=== PATIENT | male | born 1990 | race Caucasian/White ===

== ENCOUNTER 2019-03-01 14:07 | Emergency (ER) | payer OTHER ==
[2019-03-01] MEDS ORDERED: Sodium Chloride 0.9% 1000 ML 1,000 ML IV STA (14:45)
[2019-03-01] MEDS ORDERED: PROTONIX 40 MG IV IV ONE ×2 (14:47→14:54)
[2019-03-01] MEDS ORDERED: TORAdol 30 mg Injection IV ONE (14:47)
--- NOTE | 2019-03-01 14:50 | ERPHSYRPT ---
- History of Present Illness Time Seen by Provider: 03/01/19 14:48 Historian: patient Patient Subjective Stated Complaint: started feeling heart beating hard and skipping a bnneat this morning while at work. no CP has had 5 cups of coffee which is more than he usually drinks. Triage Nursing Assessment: alert and anxious states his heart has been beating hard and skipping beats since this morning. denies CP. cecily feels funny since this AM. has drank 5 cups of coffee which is more than usuall. Physician History: mild to mod off and on palpitations today since 10am, no chest pain, no shortness of breath, no fever, no VA, no family hx cad Aspirin Treatment Today: 325 mg x 1 Allergies/Adverse Reactions: No Known Drug Allergies Allergy (Unverified 03/01/19 14:47) Immunizations Up to Date: (unknown) - Review of Systems Constitutional: No Fever Eyes: No Eye Redness Ears, Nose, & Throat: No Mouth Pain Respiratory: No Dyspnea Cardiac: Palpitations, No Chest Pain, No Syncope Abdominal/Gastrointestinal: No Abdominal Pain Genitourinary Symptoms: No Dysuria Musculoskeletal: No Back Pain Skin: No Rash Neurological: No Dizziness, No Focal Weakness, No Headache - Past Medical History Pertinent Past Medical History: No - Past Surgical History Past Surgical History: No - Social History Smoking Status: Current every day smoker Exposure to second hand smoke: No Drug Use: marijuana Patient Lives Alone: No - Nursing Vital Signs Nursing Vital Signs: Initial Vital Signs Temperature 98 F 03/01/19 14:31 Pulse Rate 95 H 03/01/19 14:31 Respiratory Rate 18 03/01/19 14:31 Blood Pressure 125/82 03/01/19 14:31 O2 Sat by Pulse Oximetry 96 03/01/19 14:31 Pain Scale Pain Intensity 0 - Physical Exam General Appearance: no apparent distress Eye Exam: eyes nml inspection Ears, Nose, Throat Exam: moist mucous membranes Neck Exam: normal inspection Respiratory Exam: normal breath sounds, lungs clear, No respiratory distress Cardiovascular Exam: regular rate/rhythm Gastrointestinal/Abdomen Exam: soft, No tenderness Back Exam: normal range of motion Extremity Exam: normal inspection Neurologic Exam: alert, oriented x 3, cooperative Skin Exam: normal color, warm, dry SpO2 Interpretation: normal SpO2: 96 - Course Nursing assessment & vital signs reviewed: Yes EKG Interpreted by Me: Sinus Rhythm, Other (no stemi) - Radiology Exams Chest X-ray Interpretation: Discussed w/ radiologist, Negative Ordered Tests: Active Orders 24 hr Category Date Time Status Court Operations Clerk STAT Care 03/01/19 14:45 Active EKG-ER Only STAT Care 03/01/19 14:45 Active IV Insertion STAT Care 03/01/19 14:45 Active CHEST 1 VIEW (PORTABLE) Stat Exams 03/01/19 14:45 Completed CBC W DIFF Stat Lab 03/01/19 15:00 Completed CK-Creatinine Phosphokinase Stat Lab 03/01/19 15:05 Completed CMP Stat Lab 03/01/19 15:05 Completed D-DIMER QUANTITATION Stat Lab 03/01/19 15:05 Completed TROPONIN Q3H Lab 03/01/19 15:05 Completed TROPONIN Q3H Lab 03/01/19 17:45 Ordered TROPONIN Q3H Lab 03/01/19 20:45 Ordered TROPONIN Q3H Lab 03/01/19 23:45 Ordered TROPONIN Q3H Lab 03/02/19 02:45 Ordered Urine Triage Profile Stat Lab 03/01/19 15:06 Completed Medication Summary Discontinued Medications Generic Name Dose Route Start Last Admin Trade Name Freq PRN Reason Stop Dose Admin Sodium Chloride 1,000 mls @ 999 mls/hr 03/01/19 14:45 03/01/19 14:56 Sodium Chloride 0.9% 1000 Ml IV 03/01/19 15:45 999 mls/hr .Q1H1M STA Administration Sodium Chloride Confirm 03/01/19 14:54 Sodium Chloride 0.9% 1000 Ml Administered 03/01/19 14:55 Dose 1,000 mls @ ud .ROUTE .STK-MED ONE Ketorolac Tromethamine 30 mg 03/01/19 14:47 03/01/19 14:56 Toradol 30 Mg Injection IV 03/01/19 14:48 Not Given STAT ONE Ketorolac Tromethamine Confirm 03/01/19 14:54 Toradol 30 Mg Injection Administered 03/01/19 14:55 Dose 30 mg .ROUTE .STK-MED ONE Pantoprazole Sodium 40 mg 03/01/19 14:47 03/01/19 14:55 Protonix 40 Mg Iv IV 03/01/19 14:48 40 mg STAT ONE Administration Pantoprazole Sodium Confirm 03/01/19 14:54 Protonix 40 Mg Iv Administered 03/01/19 14:55 Dose 40 mg IV .STK-MED ONE Lab/Rad Data: Laboratory Result Diagrams 03/01/19 15:00 03/01/19 15:05 Laboratory Results 03/01/19 03/01/19 03/01/19 Range/Units 15:06 15:05 15:05 WBC (4.0-10.5) K/mm3 RBC (4.1-5.6) M/mm3 Hgb (12.5-18.0) gm/dl Hct (42-50) % MCV (78-100) fl MCH (26-32) pg MCHC (32-36) g/dl RDW (11.5-14.0) % Plt Count (150-450) K/mm3 MPV (6-9.5) fl Gran % (36.0-66.0) % Eos # (Auto) (0-0.5) Absolute Lymphs (auto) (1.0-4.6) Absolute Monos (auto) (0.0-1.3) Lymphocytes % (24.0-44.0) % Monocytes % (0.0-12.0) % Eosinophils % (0.00-5.0) % Basophils % (0.0-0.4) % Absolute Granulocytes (1.4-6.9) Basophils # (0-0.4) D-Dimer 251 (215-500) ng/mL Sodium 142 (137-145) mmol/L Potassium 4.0 (3.5-5.1) mmol/L Chloride 104 (98-107) mmol/L Carbon Dioxide 30 (22-30) mmol/L Anion Gap 12.6 (5-15) MEQ/L BUN 12 (9-20) mg/dL Creatinine 0.89 (0.66-1.25) mg/dL Estimated GFR > 60.0 ML/MIN Glucose 106 (74-106) mg/dL Calcium 9.6 (8.4-10.2) mg/dL Total Bilirubin 0.30 (0.2-1.3) mg/dL AST 23 (17-59) U/L ALT 14 (0-50) U/L Alkaline Phosphatase 39 (38-126) U/L Creatine Kinase 101 (55-170) U/L Troponin I (0.000-0.034) ng/mL Serum Total Protein 7.4 (6.3-8.2) g/dL Albumin 4.3 (3.5-5.0) g/dL Urine Opiates Level NEGATIVE (NEGATIVE) Ur Methadone NEGATIVE (NEGATIVE) Urine Barbiturates NEGATIVE (NEGATIVE) Ur Phencyclidine (PCP) NEGATIVE (NEGATIVE) Urine Amphetamine NEGATIVE (NEGATIVE) U Benzodiazepine Level NEGATIVE (NEGATIVE) Urine Cocaine NEGATIVE (NEGATIVE) Urine Marijuana (THC) POSITIVE (NEGATIVE) Slides for Path Review 03/01/19 03/01/19 Range/Units 15:05 15:00 WBC 8.0 (4.0-10.5) K/mm3 RBC 4.16 (4.1-5.6) M/mm3 Hgb 13.1 (12.5-18.0) gm/dl Hct 38.6 L (42-50) % MCV 92.8 (78-100) fl MCH 31.5 (26-32) pg MCHC 33.9 (32-36) g/dl RDW 12.5 (11.5-14.0) % Plt Count 175 (150-450) K/mm3 MPV 11.2 H (6-9.5) fl Gran % 67.7 H (36.0-66.0) % Eos # (Auto) 0.10 (0-0.5) Absolute Lymphs (auto) 1.77 (1.0-4.6) Absolute Monos (auto) 0.70 (0.0-1.3) Lymphocytes % 22.2 L (24.0-44.0) % Monocytes % 8.8 (0.0-12.0) % Eosinophils % 1.3 (0.00-5.0) % Basophils % 0.0 (0.0-0.4) % Absolute Granulocytes 5.42 (1.4-6.9) Basophils # 0 (0-0.4) D-Dimer (215-500) ng/mL Sodium (137-145) mmol/L Potassium (3.5-5.1) mmol/L Chloride (98-107) mmol/L Carbon Dioxide (22-30) mmol/L Anion Gap (5-15) MEQ/L BUN (9-20) mg/dL Creatinine (0.66-1.25) mg/dL Estimated GFR ML/MIN Glucose (74-106) mg/dL Calcium (8.4-10.2) mg/dL Total Bilirubin (0.2-1.3) mg/dL AST (17-59) U/L ALT (0-50) U/L Alkaline Phosphatase (38-126) U/L Creatine Kinase (55-170) U/L Troponin I < 0.012 (0.000-0.034) ng/mL Serum Total Protein (6.3-8.2) g/dL Albumin (3.5-5.0) g/dL Urine Opiates Level (NEGATIVE) Ur Methadone (NEGATIVE) Urine Barbiturates (NEGATIVE) Ur Phencyclidine (PCP) (NEGATIVE) Urine Amphetamine (NEGATIVE) U Benzodiazepine Level (NEGATIVE) Urine Cocaine (NEGATIVE) Urine Marijuana (THC) (NEGATIVE) Slides for Path Review YES - Progress Progress: improved Air Movement: good Progress Note: 03/01/19 17:12 differential dw pt as substance abuse, anxiety, gerd, pleurisy, pt prefers to see his doctor for an outpt stress test rather than be admitted 03/01/19 17:16 pt Heart Score 2, no family hx cad, acs less likely - Departure Departure Disposition: Home Clinical Impression: Palpitations Condition: Stable Critical Care Time: No Referrals: ANKITA VALDERRAMA NP [Primary Care Provider] - Instructions: Palpitations (DC)
[2019-03-01] MEDS ORDERED: Sodium Chloride 0.9% 1000 ML 1,000 ML ONE (14:54)
[2019-03-01] MEDS ORDERED: TORAdol 30 mg Injection ONE (14:54)
[2019-03-01 15:22] LABS: Basophil (Absolute #) 0 (0-0.4); Eosinophil % 1.3 % (0.00-5.0); Granulocyte Absolute (ANC) 5.42 (1.4-6.9); Granulocytes % 67.7 % (36.0-66.0); Hematocrit 38.6 % (42-50); Hemoglobin 13.1 gm/dl (12.5-18.0); Lymphocyte (Absolute #) 1.77 (1.0-4.6); Lymphocytes % 22.2 % (24.0-44.0); Mean Cell Volume 92.8 fl (78-100); Mean Corpuscular Hemoglobin 31.5 pg (26-32); Mean Corpuscular Hgb Concent. 33.9 g/dl (32-36); Mean Platelet Volume 11.2 fl (6-9.5); Monocytes % 8.8 % (0.0-12.0); Platelet Count 175 K/mm3 (150-450); Red Blood Count 4.16 M/mm3 (4.1-5.6); Red Cell Distribution Width 12.5 % (11.5-14.0)
--- NOTE | 2019-03-01 15:29 | XRAY ---
Indication: Palpitations. Comparison: December 13, 2008. Portable chest demonstrates normal heart, lungs, and bony thorax.
[2019-03-01 15:32] LABS: ALBUMIN 4.3 g/dL (3.5-5.0); ALKALINE PHOSPHATASE 39 U/L (38-126); ANION GAP 12.6 MEQ/L (5-15); BLOOD UREA NITROGEN 12 mg/dL (9-20); CHLORIDE 104 mmol/L (98-107); CK-Creatinine Phosphokinase 101 U/L (55-170); Calcium 9.6 mg/dL (8.4-10.2); Carbon Dioxide 30 mmol/L (22-30); Creatinine 1 0.89 mg/dL (0.66-1.25); Glucose 106 mg/dL (74-106); SGOT/AST 23 U/L (17-59); SGPT/ALT 14 U/L (0-50); SODIUM 142 mmol/L (137-145); Total Protein 7.4 g/dL (6.3-8.2)
[2019-03-01 15:44] LABS: Amphetamine,Urine NEGATIVE (NEGATIVE); Barbiturate,Urine NEGATIVE (NEGATIVE); Benzodiazepine,Urine NEGATIVE (NEGATIVE); Cocaine,Urine NEGATIVE (NEGATIVE); Methadone,Urine NEGATIVE (NEGATIVE); Opiate,Urine NEGATIVE (NEGATIVE); PCP,Urine NEGATIVE (NEGATIVE); THC,Urine POSITIVE (NEGATIVE)
[2019-03-01 15:46] LABS: Slide Review 1 YES
[2019-03-01 17:24] VITALS: BP 110/66; PULSE 66; O2SAT 97
[2019-03-01] MEDS ORDERED: BABY ASPIRIN 81 MG CHEW ONE (17:27)
[2019-03-01] MEDS ORDERED: BABY ASPIRIN 81 MG CHEW PO ONE (17:33)
[2019-03-02] MEDS ORDERED: ECOTRIN 81 MG PO SCH (10:00)
== END 2019-03-01 17:36 | disposition home or self-care (01) ==
LOC: ED 14:07
DX: R00.2 Palpitations (principal)
CPT/HCPCS: 36000; 36415; 71045; 80053; 80307; 82550; 84484; 85025; 85379; 93005; 93041; 96360; 96374; 96375; 99284; J1885; A9270-GY

== ENCOUNTER 2019-09-20 12:49 | Emergency (ER) | payer OTHER ==
--- NOTE | 2019-09-20 13:02 | ERPHSYRPT ---
- History of Present Illness Time Seen by Provider: 09/20/19 13:01 Historian: patient Exam Limitations: no limitations Physician History: 29 y/o white male with h/o heart palpitations without medication treatment. pt has been told he requires cardiology evaluation but has not made an appointment. pt seen here 03/04 for same issue. work up negative. pt does not have any cp. palpitation sx has been constant and that has been worrisome. pt denies new meds, denies soa, denies abd pain. Timing/Duration: today, hour(s) (8) Quality: other (no cp) Chest Pain Radiation: no radiation Severity of Pain-Max: none Severity of Pain-Current: none Modifying Factors: Improves With: nothing Associated Symptoms: denies symptoms Prior Chest Pain/Cardiac Workup: no prior chest pain, no prior cardiac workup Nitro Today/Relief: no nitro taken today Aspirin Treatment Today: no aspirin today Allergies/Adverse Reactions: No Known Drug Allergies Allergy (Verified 09/20/19 13:07) Home Medications: No Reportable Medications [No Reported Medications] 09/20/19 [History] - Review of Systems Constitutional: No Symptoms Eyes: No Symptoms Ears, Nose, & Throat: No Symptoms Respiratory: No Symptoms Cardiac: Palpitations Abdominal/Gastrointestinal: No Symptoms Genitourinary Symptoms: No Symptoms Musculoskeletal: No Symptoms Skin: No Symptoms Neurological: No Symptoms Psychological: No Symptoms Endocrine: No Symptoms Hematologic/Lymphatic: No Symptoms Immunological/Allergic: No Symptoms All Other Systems: Reviewed and Negative - Past Medical History Pertinent Past Medical History: No - Past Surgical History Past Surgical History: No - Social History Smoking Status: Current every day smoker Exposure to second hand smoke: No Drug Use: marijuana Patient Lives Alone: No - Nursing Vital Signs Nursing Vital Signs: Initial Vital Signs Temperature 98.6 F 09/20/19 12:58 Pulse Rate 72 09/20/19 12:58 Respiratory Rate 16 09/20/19 12:58 Blood Pressure 111/73 09/20/19 12:58 O2 Sat by Pulse Oximetry 100 09/20/19 12:58 Pain Scale Pain Intensity 3 - Physical Exam General Appearance: no apparent distress, alert, anxiety Eye Exam: PERRL/EOMI, eyes nml inspection Neck Exam: normal inspection, non-tender, supple, full range of motion Respiratory Exam: normal breath sounds, lungs clear, airway intact, No chest tenderness, No respiratory distress Cardiovascular Exam: regular rate/rhythm, normal heart sounds, normal peripheral pulses Gastrointestinal/Abdomen Exam: soft, normal bowel sounds, No tenderness Rectal Exam: not done Back Exam: normal inspection Extremity Exam: normal inspection, normal range of motion, pelvis stable Neurologic Exam: alert, oriented x 3, cooperative, geospatial technician II-XII nml as tested, sensation nml Skin Exam: normal color, warm, dry Lymphatic Exam: No adenopathy SpO2 Interpretation: normal O2 Delivery: Room Air - Course Nursing assessment & vital signs reviewed: Yes EKG Interpreted by Me: RATE (68), Sinus Rhythm, NORMAL AXIS, NORMAL INTERVALS, NORMAL QRS, Other (no change when compared to ekg dated 03/01/19) Ordered Tests: Active Orders 24 hr Category Date Time Status Seafood Harvester STAT Care 09/20/19 13:07 Active EKG-ER Only STAT Care 09/20/19 13:07 Active IV Insertion STAT Care 09/20/19 13:07 Active Pulse Oximetry (ED) STAT Care 09/20/19 13:07 Active CHEST 1 VIEW (PORTABLE) Stat Exams 09/20/19 13:04 Completed CBC W DIFF Stat Lab 09/20/19 13:20 Completed CMP Stat Lab 09/20/19 13:20 Completed D-DIMER QUANTITATION Stat Lab 09/20/19 13:20 Completed NT PRO BNP Stat Lab 09/20/19 13:20 Completed TROPONIN Q3H Lab 09/20/19 13:20 Completed TROPONIN Q3H Lab 09/20/19 16:15 Ordered TROPONIN Q3H Lab 09/20/19 19:15 Ordered TROPONIN Q3H Lab 09/20/19 22:15 Ordered TROPONIN Q3H Lab 09/21/19 01:15 Ordered Medication Summary Discontinued Medications Generic Name Dose Route Start Last Admin Trade Name Freq PRN Reason Stop Dose Admin Aspirin 324 mg 09/20/19 13:07 09/20/19 13:14 Baby Aspirin 81 Mg Chew PO 09/20/19 13:08 324 mg STAT ONE Administration Aspirin Confirm 09/20/19 13:13 Baby Aspirin 81 Mg Chew Administered 09/20/19 13:14 Dose 324 mg .ROUTE .STNovalere FP-MED ONE Lab/Rad Data: Laboratory Result Diagrams 09/20/19 13:20 09/20/19 13:20 Laboratory Results 12/03/0409/20/19 09/20/19 Range/Units 13:20 13:20 13:20 WBC (4.0-10.5) K/mm3 RBC (4.1-5.6) M/mm3 Hgb (12.5-18.0) gm/dl Hct (42-50) % MCV (78-100) fl MCH (26-32) pg MCHC (32-36) g/dl RDW (11.5-14.0) % Plt Count (150-450) K/mm3 MPV (6-9.5) fl Gran % (36.0-66.0) % Eos # (Auto) (0-0.5) Absolute Lymphs (auto) (1.0-4.6) Absolute Monos (auto) (0.0-1.3) Lymphocytes % (24.0-44.0) % Monocytes % (0.0-12.0) % Eosinophils % (0.00-5.0) % Basophils % (0.0-0.4) % Absolute Granulocytes (1.4-6.9) Basophils # (0-0.4) D-Dimer 341 (215-500) ng/mL Sodium 144 (137-145) mmol/L Potassium 5.2 H (3.5-5.1) mmol/L Chloride 104 (98-107) mmol/L Carbon Dioxide 31 H (22-30) mmol/L Anion Gap 13.6 (5-15) MEQ/L BUN 13 (9-20) mg/dL Creatinine 0.95 (0.66-1.25) mg/dL Estimated GFR > 60.0 ML/MIN Glucose 95 (74-106) mg/dL Calcium 9.9 (8.4-10.2) mg/dL Total Bilirubin 0.40 (0.2-1.3) mg/dL AST 25 (17-59) U/L ALT 13 (0-50) U/L Alkaline Phosphatase 45 (38-126) U/L Troponin I < 0.012 (0.000-0.034) ng/mL NT-Pro-B Natriuret Pep 56.8 (0-450) pg/mL Serum Total Protein 8.2 (6.3-8.2) g/dL Albumin 4.7 (3.5-5.0) g/dL 09/20/19 Range/Units 13:20 WBC 9.9 (4.0-10.5) K/mm3 RBC 4.66 (4.1-5.6) M/mm3 Hgb 14.6 (12.5-18.0) gm/dl Hct 42.5 (42-50) % MCV 91.2 (78-100) fl MCH 31.3 (26-32) pg MCHC 34.4 (32-36) g/dl RDW 12.7 (11.5-14.0) % Plt Count 257 (150-450) K/mm3 MPV 10.3 H (6-9.5) fl Gran % 61.0 (36.0-66.0) % Eos # (Auto) 0.40 (0-0.5) Absolute Lymphs (auto) 2.68 (1.0-4.6) Absolute Monos (auto) 0.77 (0.0-1.3) Lymphocytes % 27.0 (24.0-44.0) % Monocytes % 7.8 (0.0-12.0) % Eosinophils % 4.0 (0.00-5.0) % Basophils % 0.2 (0.0-0.4) % Absolute Granulocytes 6.06 (1.4-6.9) Basophils # 0.02 (0-0.4) D-Dimer (215-500) ng/mL Sodium (137-145) mmol/L Potassium (3.5-5.1) mmol/L Chloride (98-107) mmol/L Carbon Dioxide (22-30) mmol/L Anion Gap (5-15) MEQ/L BUN (9-20) mg/dL Creatinine (0.66-1.25) mg/dL Estimated GFR ML/MIN Glucose (74-106) mg/dL Calcium (8.4-10.2) mg/dL Total Bilirubin (0.2-1.3) mg/dL AST (17-59) U/L ALT (0-50) U/L Alkaline Phosphatase (38-126) U/L Troponin I (0.000-0.034) ng/mL NT-Pro-B Natriuret Pep (0-450) pg/mL Serum Total Protein (6.3-8.2) g/dL Albumin (3.5-5.0) g/dL - Progress Progress: improved Air Movement: good Progress Note: 09/20/19 14:02 cxr-no acute process. Blood Culture(s) Obtained: No Antibiotics given: No Counseled pt/family regarding: lab results, diagnosis, need for follow-up, rad results - Departure Departure Disposition: Home Clinical Impression: Palpitations Condition: Stable Critical Care Time: No Referrals: ANKITA VALDERRAMA DRAIN LAYER [Primary Care Provider] - Additional Instructions: follow up with curtain feller blindstitch for further management. avoid caffeinated products
[2019-09-20] MEDS ORDERED: BABY ASPIRIN 81 MG CHEW PO ONE (13:07)
[2019-09-20 13:13] VITALS: O2SAT 98
[2019-09-20] MEDS ORDERED: BABY ASPIRIN 81 MG CHEW ONE (13:13)
--- NOTE | 2019-09-20 13:31 | XRAY ---
Indication: Chest pain and palpitations. Comparison: March 01, 2019. Portable chest again demonstrates normal heart, lungs, and bony thorax.
[2019-09-20 13:34] LABS: Absolute Neutrophil Ct (ANC) 6.06 (1.4-6.9); BASOPHIL % 0.2 % (0.0-0.4); Basophil (Absolute #) 0.02 (0-0.4); Hematocrit 42.5 % (42-50); Hemoglobin 14.6 gm/dl (12.5-18.0); Lymphocyte (Absolute #) 2.68 (1.0-4.6); Mean Cell Volume 91.2 fl (78-100); Mean Corpuscular Hemoglobin 31.3 pg (26-32); Mean Corpuscular Hgb Concent. 34.4 g/dl (32-36); Mean Platelet Volume 10.3 fl (6-9.5); Monocyte (Absolute #) 0.77 (0.0-1.3); Monocytes % 7.8 % (0.0-12.0); Platelet Count 257 K/mm3 (150-450); Red Blood Count 4.66 M/mm3 (4.1-5.6); Red Cell Distribution Width 12.7 % (11.5-14.0); White Blood Count 9.9 K/mm3 (4.0-10.5)
[2019-09-20 13:47] LABS: ALBUMIN 4.7 g/dL (3.5-5.0); ALKALINE PHOSPHATASE 45 U/L (38-126); ANION GAP 13.6 MEQ/L (5-15); BLOOD UREA NITROGEN 13 mg/dL (9-20); CHLORIDE 104 mmol/L (98-107); Calcium 9.9 mg/dL (8.4-10.2); Carbon Dioxide 31 mmol/L (22-30); Creatinine 1 0.95 mg/dL (0.66-1.25); Glucose 95 mg/dL (74-106); NT PRO BNP 56.8 pg/mL (0-450); Potassium 5.2 mmol/L (3.5-5.1); SGOT/AST 25 U/L (17-59); SGPT/ALT 13 U/L (0-50); SODIUM 144 mmol/L (137-145); Total Protein 8.2 g/dL (6.3-8.2)
[2019-09-20 14:10] VITALS: BP 101/59; PULSE 72
== END 2019-09-20 14:27 | disposition home or self-care (01) ==
LOC: ED 12:49
DX: R00.2 Palpitations (principal)
CPT/HCPCS: 36000; 36415; 71045; 80053; 83880; 84484; 85025; 85379; 93005; 93041; 94760; 99284; A9270-GY

== ENCOUNTER 2020-12-05 20:21 | Emergency (ER) | payer OTHER ==
--- NOTE | 2020-12-05 20:24 | ERPHSYRPT ---
- History of Present Illness Time Seen by Provider: 12/05/20 20:23 Source: patient Exam Limitations: no limitations Physician History: This is a right-handed 30-year-old white male who accidentally cut his right fourth and fifth digits palmar aspect approximate 1 cm horizontally near the base of the fingers with a broken glass. This occurred prior to arrival. Patient's tetanus status is up-to-date. He states that he received a tetanus injection approximately a year ago. Occurred: just prior to arrival Method of Injury: other (Accidentally cut with a broken glass) Quality: sharpness Severity of Pain-Max: moderate Severity of Pain-Current: moderate Extremities Pain Location: 4th finger: right, 5th finger: right Modifying Factors: Improves With: movement Allergies/Adverse Reactions: No Known Drug Allergies Allergy (Verified 12/05/20 20:29) Home Medications: No Reportable Medications [No Reported Medications] 09/20/19 [History] Travel Risk - International Travel Have you traveled outside of the country in past 3 weeks: No - Coronavirus Screening Are you exhibiting any of the following symptoms?: No Close contact with a COVID-19 positive Pt in past 14-21 Days: No - Review of Systems Constitutional: No Symptoms Eyes: No Symptoms Ears, Nose, & Throat: No Symptoms Respiratory: No Symptoms Cardiac: No Symptoms Abdominal/Gastrointestinal: No Symptoms Genitourinary Symptoms: No Symptoms Musculoskeletal: Injury (Right hand (specifically laceration to right fourth and fifth digits palmar aspect)) Skin: Other (Lacerations as stated above) Neurological: No Symptoms Psychological: No Symptoms Endocrine: No Symptoms Hematologic/Lymphatic: No Symptoms Immunological/Allergic: No Symptoms All Other Systems: Reviewed and Negative - Past Medical History Pertinent Past Medical History: No Neurological History: No Pertinent History ENT History: No Pertinent History Cardiac History: No Pertinent History Respiratory History: No Pertinent History Endocrine Medical History: No Pertinent History Musculoskeletal History: No Pertinent History GI Medical History: No Pertinent History History: No Pertinent History Psycho-Social History: No Pertinent History Male Reproductive Disorders: No Pertinent History - Past Surgical History Past Surgical History: No Neuro Surgical History: No Pertinent History Cardiac: No Pertinent History Respiratory: No Pertinent History Gastrointestinal: No Pertinent History Genitourinary: No Pertinent History Musculoskeletal: No Pertinent History Male Surgical History: No Pertinent History - Social History Smoking Status: Current every day smoker How long have you smoked: 15 years Exposure to second hand smoke: No Drug Use: marijuana Patient Lives Alone: No - Nursing Vital Signs Nursing Vital Signs: Initial Vital Signs Pulse Rate 88 12/05/20 20:21 Respiratory Rate 16 12/05/20 20:21 O2 Sat by Pulse Oximetry 98 12/05/20 20:21 Pain Scale Pain Intensity 4 - Physical Exam General Appearance: no apparent distress, alert, anxiety Eyes, Ears, Nose, Throat Exam: normal ENT inspection, moist mucous membranes Neck Exam: normal inspection, non-tender, supple, full range of motion Cardiovascular/Respiratory Exam: chest non-tender, no respiratory distress Abdominal Exam: non-tender Back Exam: normal inspection, normal range of motion, No CVA tenderness, No vertebral tenderness Shoulder Exam: normal inspection, non-tender (No cough), no evidence of injury, normal ROM Elbow/Forearm Exam: normal inspection, non-tender, no evidence of injury, normal ROM Wrist Exam: normal inspection, non-tender, no evidence of injury, normal ROM (Okay) Hand Exam: laceration (Transverse oriented, 1 cm laceration x2 at the base of right digits 4 and 5 palmar aspect. Mild ooze from laceration sites controlled with pressure. No obvious foreign bodies. There appears to be possible flexor tendon injuries to digits 4 and 5 on the right.) Neuro/Tendon Exam: normal sensation, tendon function deficit (Right hand digits 4 and 5 flexor tendons) Mental Status Exam: alert, oriented x 3, cooperative Skin Exam: laceration (As stated above) SpO2 Interpretation: normal O2 Delivery: Room Air - Course Nursing assessment & vital signs reviewed: Yes Ordered Tests: Active Orders 24 hr Category Date Time Status HAND (MINIMUM 3 VIEWS) Stat Exams 12/05/20 21:00 Ordered Medication Summary Discontinued Medications Generic Name Dose Route Start Last Admin Trade Name Freq PRN Reason Stop Dose Admin Ceftriaxone Sodium 1,000 mg 12/05/20 21:14 Rocephin 1000 Mg Inj IM 12/05/20 21:15 STAT ONE Oxycodone/Acetaminophen 1 tab 12/05/20 21:14 Percocet Tablet 5/325mg PO 12/05/20 21:15 STAT STA - Progress Progress: pain not gone completely, re-examined Progress Note: 12/05/20 21:22 X-ray of right hand reveals old, healed distal metacarpal fracture. No acute fracture dislocations present. No evidence of foreign body. Medical decision making: I called and spoke with Dr. Joni Kaufman, hand surgeon at [facility]. I discussed the x-ray findings with him as well as sent the pictures of the patient's hand injury to him after obtaining full consent from the patient. I then deleted the pictures from my phone. I reviewed the patient history and condition with Dr. Kaufman. He agrees that the patient has the lacerations and possible flexor tendon injuries of his right hand digits 4 and 5. The patient was given 3 options. The first was to be transferred tonight to [facility], be n.p.o. after midnight and Dr. Kaufman would operate on him tomorrow morning. Go to the [facility] emergency department tomorrow morning at 8 AM and to be n.p.o. after midnight tonight. They can then consult Dr. Kaufman and patient would go to the operating room for surgery tomorrow morning. The third, less desirable option is to have the patient, after dressing patient and place in his fingers and splints and patient receiving antibiotics, to go to Dr. Kaufman's office at 1 PM on 12/08/2020. He would then evaluate the wound and would operate on the patient on the morning of 12/09/2020. I discussed these issues with the patient and he desires to receive an injection of Rocephin intramuscularly tonight, a pain pill tonight, be n.p.o. after midnight tonight and then to show up at the [place] emergency department at [address] Kaufman stated that there is no need to surgically close these laceration sites tonight. The wound can be irrigated out antibiotic ointment can be placed, a nonstick dressing and pressure dressing and then placed in finger splints. We then contacted the emergency department [facility] to make them aware of what the plan is so that they are aware that this was a prearranged referral to the emergency department at [facility]. We are attempting not to violate any EMTALA rules. Discussed with DrKristin: Other (Dr. Joni Daniel surgeon [facility]) Counseled pt/family regarding: diagnosis, need for follow-up, rad results - Departure Departure Disposition: Home Clinical Impression: Finger laceration involving tendon Condition: Stable Critical Care Time: No Referrals: ANKITA VALDERRAMA, PATIENT ACCOUNTS MANAGER [Primary Care Provider] - Additional Instructions: Nothing at all by mouth tonight at midnight. Go directly to the [facility] emergency department and make sure you arrive there by no later than 8 AM. Make them aware that you were told to call Dr. Joni Kaufman so that he may make arrangements to take you to the operating room for exploration of your finger lacerations and flexor tendon repairs if needed.
[2020-12-05 20:47] VITALS: O2SAT 98
[2020-12-05] MEDS ORDERED: PERCOCET TABLET 5/325MG PO STA (21:14)
[2020-12-05] MEDS ORDERED: Rocephin 1000 MG INJ IM ONE (21:14)
[2020-12-05] MEDS ORDERED: BACIGUENT PACKET ONE (21:44)
[2020-12-05] MEDS ORDERED: Rocephin 1000 MG INJ ONE (21:45)
[2020-12-05] MEDS ORDERED: PERCOCET TABLET 5/325MG ONE (21:47)
[2020-12-05] MEDS ORDERED: XYLOCAINE 1% HCL 20 ML MDV ONE (21:48)
--- NOTE | 2020-12-05 21:49 | XRAY ---
Indication: 4th/5th finger laceration with glass. Comparison: January 09, 2010. 3 view right hand demonstrates old 4th/5th metacarpal fracture deformities. Stable tiny hamate bone island. No other bony, articular, or soft tissue abnormalities.
[2020-12-05 22:14] VITALS: BP 143/83; PULSE 98
== END 2020-12-05 22:14 | disposition home or self-care (01) ==
LOC: ED 20:21
DX: S56.127A Laceration of flexor muscle, fascia and tendon of right little finger at forearm level, initial encounter (principal); S66.124A Laceration of flexor muscle, fascia and tendon of right ring finger at wrist and hand level, initial encounter; W25.XXXA Contact with sharp glass, initial encounter
CPT/HCPCS: 73130; 96372; 99284; J0696; A9270-GY

== ENCOUNTER 2021-10-30 21:14 | Emergency (ER) | payer OTHER ==
--- NOTE | 2021-10-30 21:47 | ERPHSYRPT ---
- History of Present Illness Time Seen by Provider: 10/30/21 21:41 Source: patient Exam Limitations: no limitations Physician History: Checked his BP at [facility] today and it was around 160/90. Had some tinnitus, no chest pain. No caffeine use, etc, no hx of HTN. Having stress. Timing/Duration: today Activities at Onset: none Quality: other Location: other (none) Chest Pain Radiation: no radiation Severity of Pain-Max: none Severity of Pain-Current: none Modifying Factors: Improves With: nothing Aspirin Treatment Today: no aspirin today Associated Symptoms: denies symptoms Prior Chest Pain/Cardiac Workup: no prior chest pain Allergies/Adverse Reactions: No Known Drug Allergies Allergy (Verified 10/30/21 21:42) Home Medications: No Reportable Medications [No Reported Medications] 09/20/19 [History] Hx Tetanus, Diphtheria Vaccination/Date Given: Yes Hx Influenza Vaccination/Date Given: No - Review of Systems Constitutional: No Symptoms Eyes: No Symptoms Ears, Nose, & Throat: No Symptoms Respiratory: No Symptoms Cardiac: No Symptoms Abdominal/Gastrointestinal: No Symptoms Genitourinary Symptoms: No Symptoms Musculoskeletal: No Symptoms Skin: No Symptoms Neurological: No Symptoms Psychological: No Symptoms Endocrine: No Symptoms Hematologic/Lymphatic: No Symptoms Immunological/Allergic: No Symptoms All Other Systems: Reviewed and Negative - Past Medical History Pertinent Past Medical History: No Neurological History: No Pertinent History ENT History: No Pertinent History Cardiac History: No Pertinent History Respiratory History: No Pertinent History Endocrine Medical History: No Pertinent History Musculoskeletal History: No Pertinent History GI Medical History: No Pertinent History History: No Pertinent History Psycho-Social History: No Pertinent History Male Reproductive Disorders: No Pertinent History - Past Surgical History Past Surgical History: No Neuro Surgical History: No Pertinent History Cardiac: No Pertinent History Respiratory: No Pertinent History Gastrointestinal: No Pertinent History Genitourinary: No Pertinent History Musculoskeletal: No Pertinent History Male Surgical History: No Pertinent History - Social History Smoking Status: Current every day smoker How long have you smoked: 15 years Exposure to second hand smoke: No Drug Use: marijuana Patient Lives Alone: No - Nursing Vital Signs Nursing Vital Signs: Initial Vital Signs Temperature 97.8 F 10/30/21 21:27 Pulse Rate 88 10/30/21 21:27 Respiratory Rate 16 10/30/21 21:27 Blood Pressure 142/95 10/30/21 21:27 O2 Sat by Pulse Oximetry 98 10/30/21 21:27 Pain Scale Pain Intensity 0 - Physical Exam General Appearance: no apparent distress, anxiety Eye Exam: PERRL/EOMI Ears, Nose, Throat Exam: normal ENT inspection Neck Exam: normal inspection Respiratory Exam: normal breath sounds Cardiovascular Exam: regular rate/rhythm, normal heart sounds Gastrointestinal/Abdomen Exam: soft, normal bowel sounds Rectal Exam: deferred Back Exam: normal inspection Extremity Exam: normal inspection Neurologic Exam: alert, oriented x 3 Skin Exam: normal color, warm - Course Nursing assessment & vital signs reviewed: Yes EKG Interpreted by Me: RATE (79), Sinus Rhythm, NORMAL AXIS, NORMAL INTERVALS, NORMAL QRS, NORMAL ST-T Ordered Tests: Active Orders 24 hr Category Date Time Status CBC W DIFF Stat Lab 10/30/21 22:35 Completed CMP Stat Lab 10/30/21 22:35 Completed Lab/Rad Data: Laboratory Result Diagrams 10/30/21 22:35 10/30/21 22:35 Laboratory Results 10/30/21 10/30/21 Range/Units 22:35 22:35 WBC 10.5 (4.0-10.5) K/mm3 RBC 4.45 (4.1-5.6) M/mm3 Hgb 13.9 (12.5-18.0) gm/dl Hct 40.5 L (42-50) % MCV 91.0 (78-100) fl MCH 31.2 (26-32) pg MCHC 34.3 (32-36) g/dl RDW 12.2 (11.5-14.0) % Plt Count 231 (150-450) K/mm3 MPV 9.8 (7.5-11.0) fl Gran % 61.7 (36.0-66.0) % Eos # (Auto) 0.35 (0-0.5) Absolute Lymphs (auto) 2.80 (1.0-4.6) Absolute Monos (auto) 0.85 (0.0-1.3) Lymphocytes % 26.6 (24.0-44.0) % Monocytes % 8.1 (0.0-12.0) % Eosinophils % 3.3 (0.00-5.0) % Basophils % 0.3 (0.0-0.4) % Absolute Granulocytes 6.50 (1.4-6.9) Basophils # 0.03 (0-0.4) Sodium 137 (137-145) mmol/L Potassium 3.8 (3.5-5.1) mmol/L Chloride 102 (98-107) mmol/L Carbon Dioxide 28 (22-30) mmol/L Anion Gap 11.0 (5-15) MEQ/L BUN 20 (9-20) mg/dL Creatinine 1.15 (0.66-1.25) mg/dL Estimated GFR > 60.0 ML/MIN Glucose 101 (74-106) mg/dL Calcium 9.2 (8.4-10.2) mg/dL Total Bilirubin 0.50 (0.2-1.3) mg/dL AST 28 (17-59) U/L ALT 16 (0-50) U/L Alkaline Phosphatase 63 (38-126) U/L Serum Total Protein 6.7 (6.3-8.2) g/dL Albumin 4.1 (3.5-5.0) g/dL - Progress Progress: improved Air Movement: good Progress Note: 10/31/21 02:58 BP normal here. W/U neg. Advised him to monitor BP and see PCP. Blood Culture(s) Obtained: No Antibiotics given: No Counseled pt/family regarding: lab results, diagnosis, need for follow-up - Departure Departure Disposition: Home Clinical Impression: Palpitations Condition: Stable Critical Care Time: No Referrals: ANKITA VALDERRAMA, NIGHT CLUB MANAGER [Primary Care Provider] - Follow up/PCP as directed Instructions: Palpitations (DC) Additional Instructions: Monitor your blood pressure and recheck with your PCP.
[2021-10-30 22:40] LABS: Basophil (Absolute #) 0.03 (0-0.4); Eosinophil % 3.3 % (0.00-5.0); Eosinophil (Absolute #) 0.35 (0-0.5); Hematocrit 40.5 % (42-50); Hemoglobin 13.9 gm/dl (12.5-18.0); Lymphocytes % 26.6 % (24.0-44.0); Mean Corpuscular Hemoglobin 31.2 pg (26-32); Mean Corpuscular Hgb Concent. 34.3 g/dl (32-36); Mean Platelet Volume 9.8 fl (7.5-11.0); Monocyte (Absolute #) 0.85 (0.0-1.3); Monocytes % 8.1 % (0.0-12.0); Neutrophil % 61.7 % (36.0-66.0); Platelet Count 231 K/mm3 (150-450); Red Blood Count 4.45 M/mm3 (4.1-5.6); Red Cell Distribution Width 12.2 % (11.5-14.0); White Blood Count 10.5 K/mm3 (4.0-10.5)
[2021-10-30 22:57] LABS: ALBUMIN 4.1 g/dL (3.5-5.0); ALKALINE PHOSPHATASE 63 U/L (38-126); BLOOD UREA NITROGEN 20 mg/dL (9-20); CHLORIDE 102 mmol/L (98-107); Calcium 9.2 mg/dL (8.4-10.2); Carbon Dioxide 28 mmol/L (22-30); Creatinine 1 1.15 mg/dL (0.66-1.25); EST GLOMERULAR FILTRATION RATE > 60.0 ML/MIN; Glucose 101 mg/dL (74-106); Potassium 3.8 mmol/L (3.5-5.1); SGOT/AST 28 U/L (17-59); SGPT/ALT 16 U/L (0-50); SODIUM 137 mmol/L (137-145); Total Protein 6.7 g/dL (6.3-8.2)
[2021-10-30 23:21] VITALS: BP 130/87; PULSE 72; O2SAT 97
== END 2021-10-30 23:25 | disposition home or self-care (01) ==
LOC: ED 21:14
DX: R00.2 Palpitations (principal); Z72.0 Tobacco use
CPT/HCPCS: 36415; 80053; 85025; 99283

== ENCOUNTER 2021-11-13 10:04 | Emergency (ER) | payer OTHER ==
[2021-11-13] MEDS ORDERED: Zofran 4 MG/2 ML VIAL IV ONE (10:32)
[2021-11-13] MEDS ORDERED: Sodium Chloride 0.9% 1000 ML 1,000 ML IV STA ×2 (10:32→11:38)
[2021-11-13] MEDS ORDERED: PROTONIX 40 MG IV IV ONE ×2 (10:32→11:07)
--- NOTE | 2021-11-13 10:32 | ERPHSYRPT ---
- History of Present Illness Time Seen by Provider: 11/13/21 10:15 Historian: patient Exam Limitations: no limitations Patient Subjective Stated Complaint: Pt c/o of vomiting since approx 2200 last night, denies any other symptoms, thinks he ate bad [place] island[place] Triage Nursing Assessment: Pt was brought to the ER by a friend, tachycardic, denies pain, thinks he's dehydrated, pulses normal, denies diarrhea, denies any other symptoms, doesn't appear to be in any distress Physician History: This is a 31-year-old white male who engages in periodic binge alcohol consumption. Patient drinks significantly for 2 to 3 days prior to 10:00 PM last evening when he began having vomiting episodes. There were multiple. He also is wondering whether or not it was bad [place] food that he also consumed a few hours prior. Patient denies fever. He does not have chest pain or shortness of breath. He denies diarrhea. Timing/Duration: yesterday Activities at Onset: none Quality: cramping Abdominal Pain Onset Location: generalized abdomen Pain Radiation: no radiation Severity of Pain-Max: mild Severity of Pain-Current: mild Modifying Factors: Improves With: vomiting Associated Symptoms: loss of appetite, nausea, vomiting Previous symptoms: same symptoms as today Allergies/Adverse Reactions: No Known Drug Allergies Allergy (Verified 11/13/21 10:21) Home Medications: Escitalopram Oxalate [Lexapro] 5 mg PO DAILY 11/13/21 [History] Hx Tetanus, Diphtheria Vaccination/Date Given: Yes Hx Influenza Vaccination/Date Given: No Hx Pneumococcal Vaccination/Date Given: No Travel Risk - International Travel Have you traveled outside of the country in past 3 weeks: No - Coronavirus Screening Are you exhibiting any of the following symptoms?: Yes Symptoms: Vomiting/Diarrhea Close contact with a COVID-19 positive Pt in past 14-21 Days: No - Vaccine Status Have you recieved a Covid-19 vaccination: No - Review of Systems Constitutional: Weakness Eyes: No Symptoms Ears, Nose, & Throat: No Symptoms Respiratory: No Symptoms Cardiac: No Symptoms Abdominal/Gastrointestinal: Nausea, Vomiting, No Diarrhea Genitourinary Symptoms: No Symptoms Musculoskeletal: No Symptoms Skin: No Symptoms Neurological: No Symptoms Psychological: No Symptoms Endocrine: No Symptoms Hematologic/Lymphatic: No Symptoms Immunological/Allergic: No Symptoms All Other Systems: Reviewed and Negative - Past Medical History Pertinent Past Medical History: No Neurological History: No Pertinent History ENT History: No Pertinent History Cardiac History: No Pertinent History Respiratory History: No Pertinent History Endocrine Medical History: No Pertinent History Musculoskeletal History: No Pertinent History GI Medical History: No Pertinent History History: No Pertinent History Psycho-Social History: No Pertinent History Male Reproductive Disorders: No Pertinent History - Past Surgical History Past Surgical History: Yes Neuro Surgical History: No Pertinent History Cardiac: No Pertinent History Respiratory: No Pertinent History Gastrointestinal: No Pertinent History Genitourinary: No Pertinent History Musculoskeletal: No Pertinent History Male Surgical History: No Pertinent History Other Surgical History: lt femur, lt humerus, wrist, nasal surgery, rt hand. - Social History Smoking Status: Current every day smoker How long have you smoked: 15 years Exposure to second hand smoke: Yes Drug Use: marijuana Patient Lives Alone: No - Nursing Vital Signs Nursing Vital Signs: Initial Vital Signs Temperature 98.7 F 11/13/21 10:11 Pulse Rate 110 H 11/13/21 10:11 Blood Pressure 134/95 11/13/21 10:11 O2 Sat by Pulse Oximetry 97 11/13/21 10:11 Pain Scale Pain Intensity 2 - Physical Exam General Appearance: mild distress, alert, anxiety Eye Exam: PERRL/EOMI, eyes nml inspection Ears, Nose, Throat Exam: normal ENT inspection, moist mucous membranes Neck Exam: normal inspection, non-tender, supple, full range of motion Respiratory Exam: normal breath sounds, lungs clear, airway intact, No chest tenderness, No respiratory distress Cardiovascular Exam: tachycardia Gastrointestinal/Abdomen Exam: soft, normal bowel sounds, No tenderness, No guarding Rectal Exam: not done Back Exam: normal inspection, normal range of motion, No CVA tenderness, No vertebral tenderness Extremity Exam: normal inspection, normal range of motion, pelvis stable Neurologic Exam: alert, oriented x 3, cooperative, mold shifter II-XII nml as tested, normal mood/affect, nml cerebellar function, nml station & gait, sensation nml Skin Exam: normal color, warm, dry Lymphatic Exam: No adenopathy SpO2 Interpretation: normal SpO2: 97 O2 Delivery: Room Air - Course Nursing assessment & vital signs reviewed: Yes Ordered Tests: Active Orders 24 hr Category Date Time Status Clean Catch Urine Specimen STAT Care 11/13/21 11:31 Active IV Insertion STAT Care 11/13/21 10:32 Active AMYLASE Stat Lab 11/13/21 10:40 Completed CBC W DIFF Stat Lab 11/13/21 10:40 Completed CMP Stat Lab 11/13/21 10:40 Completed ETHYL ALCOHOL Stat Lab 11/13/21 10:40 Completed INFLUENZA A+B MARKUS Stat Lab 11/13/21 10:40 Completed LIPASE Stat Lab 11/13/21 10:40 Completed Lactic Acid Stat Lab 11/13/21 10:43 Completed Kern Screen Stat Lab 11/13/21 10:40 Completed UA W/RFX UR CULTURE Stat Lab 11/13/21 11:38 Completed Urine Triage Profile Stat Lab 11/13/21 10:40 Completed Medication Summary Generic Name Dose Route Start Last Admin Trade Name Freq PRN Reason Stop Dose Admin Sodium Chloride 1,000 mls @ 999 mls/hr 11/13/21 11:38 Sodium Chloride 0.9% 1000 Ml IV 11/13/21 12:38 .Q1H1M STA Discontinued Medications Generic Name Dose Route Start Last Admin Trade Name Freq PRN Reason Stop Dose Admin Sodium Chloride 1,000 mls @ 999 mls/hr 11/13/21 10:32 11/13/21 11:14 Sodium Chloride 0.9% 1000 Ml IV 11/13/21 11:32 999 mls/hr .Q1H1M STA Administration Sodium Chloride Confirm 11/13/21 11:07 Sodium Chloride 0.9% 1000 Ml Administered 11/13/21 11:08 Dose 1,000 mls @ ud .ROUTE .STK-MED ONE Ondansetron HCl 4 mg 11/13/21 10:32 11/13/21 11:13 Ondansetron Hcl 4 Mg/2 Ml Vial IV 11/13/21 10:33 4 mg STAT ONE Administration Ondansetron HCl Confirm 11/13/21 11:07 Ondansetron Hcl 4 Mg/2 Ml Vial Administered 11/13/21 11:08 Dose 4 mg .ROUTE .STK-MED ONE Pantoprazole Sodium 40 mg 11/13/21 10:32 11/13/21 11:14 Pantoprazole 40 Mg Vial IV 11/13/21 10:33 40 mg STAT ONE Administration Pantoprazole Sodium Confirm 11/13/21 11:07 Pantoprazole 40 Mg Vial Administered 11/13/21 11:08 Dose 40 mg IV .STK-MED ONE Lab/Rad Data: Laboratory Result Diagrams 11/13/21 10:40 11/13/21 10:40 Laboratory Results 11/13/21 11/13/21 11/13/21 Range/Units 11:38 10:43 10:40 WBC (4.0-10.5) K/mm3 RBC (4.1-5.6) M/mm3 Hgb (12.5-18.0) gm/dl Hct (42-50) % MCV (78-100) fl MCH (26-32) pg MCHC (32-36) g/dl RDW (11.5-14.0) % Plt Count (150-450) K/mm3 MPV (7.5-11.0) fl Gran % (36.0-66.0) % Eos # (Auto) (0-0.5) Absolute Lymphs (auto) (1.0-4.6) Absolute Monos (auto) (0.0-1.3) Lymphocytes % (24.0-44.0) % Monocytes % (0.0-12.0) % Eosinophils % (0.00-5.0) % Basophils % (0.0-0.4) % Absolute Granulocytes (1.4-6.9) Basophils # (0-0.4) Sodium (137-145) mmol/L Potassium (3.5-5.1) mmol/L Chloride (98-107) mmol/L Carbon Dioxide (22-30) mmol/L Anion Gap (5-15) MEQ/L BUN (9-20) mg/dL Creatinine (0.66-1.25) mg/dL Estimated GFR ML/MIN Glucose (74-106) mg/dL Lactic Acid 3.7 H (0.4-2.0) Calcium (8.4-10.2) mg/dL Total Bilirubin (0.2-1.3) mg/dL AST (17-59) U/L ALT (0-50) U/L Alkaline Phosphatase (38-126) U/L Serum Total Protein (6.3-8.2) g/dL Albumin (3.5-5.0) g/dL Amylase (30-110) U/L Lipase (23-300) U/L Urine Color STRAW (YELLOW) Urine Appearance CLEAR (CLEAR) Urine pH 6.0 (5-6) Ur Specific Hartley 1.008 (1.005-1.025) Urine Protein NEGATIVE (Negative) Urine Ketones TRACE (NEGATIVE) Urine Blood NEGATIVE (0-5) Mumtaz/ul Urine Nitrite NEGATIVE (NEGATIVE) Urine Bilirubin NEGATIVE (NEGATIVE) Urine Urobilinogen NEGATIVE (0-1) mg/dL Ur Leukocyte Esterase NEGATIVE (NEGATIVE) Urine WBC (Auto) NONE (0-5) /HPF Urine RBC (Auto) NONE (0-2) /HPF Urine Culture Reflexed NO (NO) Urine Glucose NEGATIVE (NEGATIVE) mg/dL Urine Opiates Level NEGATIVE (NEGATIVE) Ur Methadone NEGATIVE (NEGATIVE) Urine Barbiturates NEGATIVE (NEGATIVE) Ur Phencyclidine (PCP) NEGATIVE (NEGATIVE) Urine Amphetamine NEGATIVE (NEGATIVE) U Benzodiazepine Level NEGATIVE (NEGATIVE) Urine Cocaine NEGATIVE (NEGATIVE) Urine Marijuana (THC) NEGATIVE (NEGATIVE) Ethyl Alcohol (0-10) mg/dL Monoscreen (Negative) Influenza Type A Ag (NEGATIVE) Influenza Type B Ag (NEGATIVE) 11/13/21 11/13/21 11/13/21 Range/Units 10:40 10:40 10:40 WBC (4.0-10.5) K/mm3 RBC (4.1-5.6) M/mm3 Hgb (12.5-18.0) gm/dl Hct (42-50) % MCV (78-100) fl MCH (26-32) pg MCHC (32-36) g/dl RDW (11.5-14.0) % Plt Count (150-450) K/mm3 MPV (7.5-11.0) fl Gran % (36.0-66.0) % Eos # (Auto) (0-0.5) Absolute Lymphs (auto) (1.0-4.6) Absolute Monos (auto) (0.0-1.3) Lymphocytes % (24.0-44.0) % Monocytes % (0.0-12.0) % Eosinophils % (0.00-5.0) % Basophils % (0.0-0.4) % Absolute Granulocytes (1.4-6.9) Basophils # (0-0.4) Sodium 138 (137-145) mmol/L Potassium 3.8 (3.5-5.1) mmol/L Chloride 99 (98-107) mmol/L Carbon Dioxide 24 (22-30) mmol/L Anion Gap 19.8 H (5-15) MEQ/L BUN 21 H (9-20) mg/dL Creatinine 1.00 (0.66-1.25) mg/dL Estimated GFR > 60.0 ML/MIN Glucose 100 (74-106) mg/dL Lactic Acid (0.4-2.0) Calcium 9.6 (8.4-10.2) mg/dL Total Bilirubin 0.60 (0.2-1.3) mg/dL AST 44 (17-59) U/L ALT 36 (0-50) U/L Alkaline Phosphatase 71 (38-126) U/L Serum Total Protein 7.8 (6.3-8.2) g/dL Albumin 5.0 (3.5-5.0) g/dL Amylase 70 (30-110) U/L Lipase 52 (23-300) U/L Urine Color (YELLOW) Urine Appearance (CLEAR) Urine pH (5-6) Ur Specific Hartley (1.005-1.025) Urine Protein (Negative) Urine Ketones (NEGATIVE) Urine Blood (0-5) Mumtaz/ul Urine Nitrite (NEGATIVE) Urine Bilirubin (NEGATIVE) Urine Urobilinogen (0-1) mg/dL Ur Leukocyte Esterase (NEGATIVE) Urine WBC (Auto) (0-5) /HPF Urine RBC (Auto) (0-2) /HPF Urine Culture Reflexed (NO) Urine Glucose (NEGATIVE) mg/dL Urine Opiates Level (NEGATIVE) Ur Methadone (NEGATIVE) Urine Barbiturates (NEGATIVE) Ur Phencyclidine (PCP) (NEGATIVE) Urine Amphetamine (NEGATIVE) U Benzodiazepine Level (NEGATIVE) Urine Cocaine (NEGATIVE) Urine Marijuana (THC) (NEGATIVE) Ethyl Alcohol 46 H (0-10) mg/dL Monoscreen NEGATIVE (Negative) Influenza Type A Ag (NEGATIVE) Influenza Type B Ag (NEGATIVE) 11/13/21 11/13/21 Range/Units 10:40 10:40 WBC 12.8 H (4.0-10.5) K/mm3 RBC 4.77 (4.1-5.6) M/mm3 Hgb 14.8 (12.5-18.0) gm/dl Hct 43.4 (42-50) % MCV 91.0 (78-100) fl MCH 31.0 (26-32) pg MCHC 34.1 (32-36) g/dl RDW 12.6 (11.5-14.0) % Plt Count 233 (150-450) K/mm3 MPV 9.9 (7.5-11.0) fl Gran % 75.2 H (36.0-66.0) % Eos # (Auto) 0.12 (0-0.5) Absolute Lymphs (auto) 2.10 (1.0-4.6) Absolute Monos (auto) 0.92 (0.0-1.3) Lymphocytes % 16.4 L (24.0-44.0) % Monocytes % 7.2 (0.0-12.0) % Eosinophils % 0.9 (0.00-5.0) % Basophils % 0.3 (0.0-0.4) % Absolute Granulocytes 9.62 H (1.4-6.9) Basophils # 0.04 (0-0.4) Sodium (137-145) mmol/L Potassium (3.5-5.1) mmol/L Chloride (98-107) mmol/L Carbon Dioxide (22-30) mmol/L Anion Gap (5-15) MEQ/L BUN (9-20) mg/dL Creatinine (0.66-1.25) mg/dL Estimated GFR ML/MIN Glucose (74-106) mg/dL Lactic Acid (0.4-2.0) Calcium (8.4-10.2) mg/dL Total Bilirubin (0.2-1.3) mg/dL AST (17-59) U/L ALT (0-50) U/L Alkaline Phosphatase (38-126) U/L Serum Total Protein (6.3-8.2) g/dL Albumin (3.5-5.0) g/dL Amylase (30-110) U/L Lipase (23-300) U/L Urine Color (YELLOW) Urine Appearance (CLEAR) Urine pH (5-6) Ur Specific Hartley (1.005-1.025) Urine Protein (Negative) Urine Ketones (NEGATIVE) Urine Blood (0-5) Mumtaz/ul Urine Nitrite (NEGATIVE) Urine Bilirubin (NEGATIVE) Urine Urobilinogen (0-1) mg/dL Ur Leukocyte Esterase (NEGATIVE) Urine WBC (Auto) (0-5) /HPF Urine RBC (Auto) (0-2) /HPF Urine Culture Reflexed (NO) Urine Glucose (NEGATIVE) mg/dL Urine Opiates Level (NEGATIVE) Ur Methadone (NEGATIVE) Urine Barbiturates (NEGATIVE) Ur Phencyclidine (PCP) (NEGATIVE) Urine Amphetamine (NEGATIVE) U Benzodiazepine Level (NEGATIVE) Urine Cocaine (NEGATIVE) Urine Marijuana (THC) (NEGATIVE) Ethyl Alcohol (0-10) mg/dL Monoscreen (Negative) Influenza Type A Ag NEGATIVE (NEGATIVE) Influenza Type B Ag NEGATIVE (NEGATIVE) - Progress Progress: improved - Departure Departure Disposition: Home Clinical Impression: Vomiting Condition: Stable Critical Care Time: No Referrals: ANKITA VALDERRAMA, RESEARCH PSYCHOLOGIST [Primary Care Provider] - Follow up/PCP as directed Additional Instructions: Drink plenty of nonalcoholic liquids. Follow-up with your primary care doctor for further management. Prescriptions: Ondansetron ODT 4 MG [Zofran Odt 4 mg] 4 mg PO Q6H PRN PRN #10 tablet PRN Reason: Vomiting
[2021-11-13 10:59] LABS: Absolute Neutrophil Ct (ANC) 9.62 (1.4-6.9); Basophil (Absolute #) 0.04 (0-0.4); Eosinophil % 0.9 % (0.00-5.0); Eosinophil (Absolute #) 0.12 (0-0.5); Hematocrit 43.4 % (42-50); Hemoglobin 14.8 gm/dl (12.5-18.0); Lymphocytes % 16.4 % (24.0-44.0); Mean Corpuscular Hgb Concent. 34.1 g/dl (32-36); Mean Platelet Volume 9.9 fl (7.5-11.0); Monocyte (Absolute #) 0.92 (0.0-1.3); Monocytes % 7.2 % (0.0-12.0); Neutrophil % 75.2 % (36.0-66.0); Platelet Count 233 K/mm3 (150-450); Red Blood Count 4.77 M/mm3 (4.1-5.6); Red Cell Distribution Width 12.6 % (11.5-14.0); White Blood Count 12.8 K/mm3 (4.0-10.5)
[2021-11-13] MEDS ORDERED: Sodium Chloride 0.9% 1000 ML 1,000 ML ONE (11:07)
[2021-11-13] MEDS ORDERED: Zofran 4 MG/2 ML VIAL ONE (11:07)
[2021-11-13 11:09] LABS: ALKALINE PHOSPHATASE 71 U/L (38-126); AMYLASE 70 U/L (30-110); ANION GAP 19.8 MEQ/L (5-15); BLOOD UREA NITROGEN 21 mg/dL (9-20); CHLORIDE 99 mmol/L (98-107); Calcium 9.6 mg/dL (8.4-10.2); Carbon Dioxide 24 mmol/L (22-30); EST GLOMERULAR FILTRATION RATE > 60.0 ML/MIN; Glucose 100 mg/dL (74-106); LIPASE 52 U/L (23-300); Potassium 3.8 mmol/L (3.5-5.1); SGOT/AST 44 U/L (17-59); SGPT/ALT 36 U/L (0-50); SODIUM 138 mmol/L (137-145); Total Protein 7.8 g/dL (6.3-8.2)
[2021-11-13 11:13] LABS: INFLUENZA A NEGATIVE (NEGATIVE); INFLUENZA B NEGATIVE (NEGATIVE)
[2021-11-13 11:17] VITALS: BP 107/71; PULSE 73
[2021-11-13 11:33] VITALS: O2SAT 97
[2021-11-13 11:41] LABS: Appearance CLEAR (CLEAR); Bilirubin NEGATIVE (NEGATIVE); Blood NEGATIVE Ery/ul (0-5); Glucose NEGATIVE (NEGATIVE); Ketones TRACE (NEGATIVE); Leukocyte Esterase NEGATIVE (NEGATIVE); Nitrite NEGATIVE (NEGATIVE); Protein,Urine Dip NEGATIVE (Negative); Specific Gravity 1.008 (1.005-1.025); Urobilinogen NEGATIVE mg/dL (0-1)
[2021-11-13 12:06] LABS: Amphetamine,Urine NEGATIVE (NEGATIVE); Barbiturate,Urine NEGATIVE (NEGATIVE); Benzodiazepine,Urine NEGATIVE (NEGATIVE); Cocaine,Urine NEGATIVE (NEGATIVE); Methadone,Urine NEGATIVE (NEGATIVE); Opiate,Urine NEGATIVE (NEGATIVE); PCP,Urine NEGATIVE (NEGATIVE); THC,Urine NEGATIVE (NEGATIVE)
[2021-11-13] MEDS ORDERED: Ativan 2 MG/1 ML VIAL IV ONE (12:32)
[2021-11-13] MEDS ORDERED: Ativan 2 MG/1 ML VIAL ONE (12:37)
== END 2021-11-13 13:04 | disposition home or self-care (01) ==
LOC: ED 10:04
DX: R11.2 Nausea with vomiting, unspecified (principal); R10.84 Generalized abdominal pain; Z72.0 Tobacco use; Z72.89 Other problems related to lifestyle
CPT/HCPCS: 36415; 80053; 80307; 81001; 82150; 83605; 83690; 85025; 86308; 87400; 96360; 96374; 96375; 99284; G0480; J2060; J2405

== ENCOUNTER 2022-09-01 15:43 | Observation (INO) | payer OTHER ==
[2022-09-01] MEDS ORDERED: Zofran 4 MG/2 ML VIAL IV ONE (15:50)
[2022-09-01] MEDS ORDERED: Sodium Chloride 0.9% 1000 ML 1,000 ML IV STA (15:50)
[2022-09-01] MEDS ORDERED: PROTONIX 40 MG IV IV ONE ×2 (15:51→16:38)
[2022-09-01] MEDS ORDERED: Ativan 2 MG/1 ML VIAL IV ONE ×4 (15:55→22:55)
[2022-09-01] MEDS ORDERED: Ativan 2 MG/1 ML VIAL ONE ×4 (15:56→23:03)
[2022-09-01] MEDS ORDERED: XYLOCAINE 1% HCL 20 ML MDV ONE (15:57)
[2022-09-01] MEDS ORDERED: XYLOCAINE 1% HCL 20 ML MDV IJ ONE (16:02)
[2022-09-01 16:05] LABS: Absolute Neutrophil Ct (ANC) 4.45 x10^3/uL (1.4-6.9); Basophil (Absolute #) 0.06 x10^3/uL (0-0.4); Eosinophil % 3.5 % (0.00-5.0); Eosinophil (Absolute #) 0.32 x10^3/uL (0-0.5); Hematocrit 47.3 % (42-50); Lymphocyte (Absolute #) 3.35 x10^3/uL (1.0-4.6); Lymphocytes % 37.1 % (24.0-44.0); Mean Cell Volume 97.3 fL (78-100); Mean Corpuscular Hemoglobin 32.9 pg (26-32); Mean Corpuscular Hgb Concent. 33.8 g/dL (32-36); Mean Platelet Volume 9.9 fL (7.5-11.0); Monocytes % 8.9 % (0.0-12.0); Neutrophil % 49.4 % (36.0-66.0); Platelet Count 268 x10^3/uL (150-450); Red Blood Count 4.86 x10^6/uL (4.1-5.6); Red Cell Distribution Width 13.2 % (11.5-14.0)
[2022-09-01 16:19] LABS: ACETAMINOPHEN < 10 ug/ml (10-30); ALBUMIN 5.2 g/dL (3.5-5.0); ALKALINE PHOSPHATASE 70 U/L (38-126); ANION GAP 22.2 MEQ/L (5-15); BLOOD UREA NITROGEN 9 mg/dL (9-20); CHLORIDE 107 mmol/L (98-107); Calcium 9.6 mg/dL (8.4-10.2); Carbon Dioxide 20 mmol/L (22-30); Creatinine 1 1.04 mg/dL (0.66-1.25); EST GLOMERULAR FILTRATION RATE > 60.0 ML/MIN; Glucose 97 mg/dL (74-106); Potassium 4.4 mmol/L (3.5-5.1); SALICYLATE 1.8 mg/dL (2-20); SGOT/AST 67 U/L (17-59); SGPT/ALT 71 U/L (0-50); SODIUM 145 mmol/L (137-145); Total Protein 9.3 g/dL (6.3-8.2)
[2022-09-01 16:33] LABS: ETHYL ALCOHOL 354 mg/dL (0-10)
[2022-09-01] MEDS ORDERED: Zofran 4 MG/2 ML VIAL ONE (16:37)
[2022-09-01] MEDS ORDERED: Sodium Chloride 0.9% 1000 ML 1,000 ML ONE (16:38)
--- NOTE | 2022-09-01 17:44 | ERPHSYRPT ---
- History of Present Illness Time Seen by Provider: 09/01/22 15:45 Source: patient, police Exam Limitations: intoxication Patient Subjective Stated Complaint: Pt attempted to kill himself by cutting his left forearm going up the arm and drinking multiple bottles of hand window caser and listerine Triage Nursing Assessment: Pt brought to the ER by EMS and law enforcement, pt had been trying to get off of alcohol and he failed and so he drank approx 10 large bottles of hand window caser and listerine and then it caused him to want to kill himself so he cut his left forearm from the distal end of the wrist going long-term up the arm, pt took all of his librium yesterday which was 5 pills, pt wants to stop drinking but he just can't stop and so he wants to end it all, laceration is 11 cm long Physician History: This is a 32-year-old white male patient who was brought in by police officers because he was trying to kill himself. He drank 10 bottles of hand window caser as well as Listerine which she did not tell us the amount of Listerine he consumed prior to arrival. Patient states that he consumes alcohol every day and did so today as well. Patient wants to stop drinking alcohol but is unable to do so so he just wants to end it all. Apparently, he took a card boxer to his left forearm and made 11 cm laceration to it. He arrives intoxicated Timing/Duration: today Severity of Symptoms-Max: moderate Context related to: other (Unable to stop drinking alcohol) Associated Symptoms: ingestion, suicidal ideation Previous symptoms: same symptoms as today Allergies/Adverse Reactions: No Known Drug Allergies Allergy (Verified 09/01/22 16:10) Home Medications: Escitalopram Oxalate [Lexapro] 10 mg PO DAILY 11/13/21 [History] Naltrexone Microspheres [Vivitrol] 380 mg IM UD 09/01/22 [History] chlordiazePOXIDE HCl [Chlordiazepoxide HCl] 50 mg PO Q6H 09/01/22 [History] Hx Tetanus, Diphtheria Vaccination/Date Given: Yes Hx Influenza Vaccination/Date Given: No Hx Pneumococcal Vaccination/Date Given: No Travel Risk - International Travel Have you traveled outside of the country in past 3 weeks: No - Coronavirus Screening Are you exhibiting any of the following symptoms?: No Close contact with a COVID-19 positive Pt in past 14-21 Days: No - Vaccine Status Have you recieved a Covid-19 vaccination: No - Past Medical History Pertinent Past Medical History: No Neurological History: No Pertinent History ENT History: No Pertinent History Cardiac History: No Pertinent History Respiratory History: No Pertinent History Endocrine Medical History: No Pertinent History Musculoskeletal History: No Pertinent History GI Medical History: No Pertinent History History: No Pertinent History Psycho-Social History: No Pertinent History Male Reproductive Disorders: No Pertinent History - Past Surgical History Past Surgical History: Yes Neuro Surgical History: No Pertinent History Cardiac: No Pertinent History Respiratory: No Pertinent History Gastrointestinal: No Pertinent History Genitourinary: No Pertinent History Musculoskeletal: No Pertinent History Male Surgical History: No Pertinent History Other Surgical History: lt femur, lt humerus, wrist, nasal surgery, rt hand. - Social History Smoking Status: Current every day smoker How long have you smoked: 15 years Exposure to second hand smoke: Yes Drug Use: marijuana Patient Lives Alone: No - Review of Systems Constitutional: No Symptoms Eyes: No Symptoms Ears, Nose, & Throat: No Symptoms Respiratory: No Symptoms Cardiac: No Symptoms Abdominal/Gastrointestinal: No Symptoms Genitourinary Symptoms: No Symptoms Musculoskeletal: Injury (Left forearm laceration 11 cm in length) Skin: Other (Left forearm laceration 11 cm in length actually oriented) Neurological: No Symptoms Psychological: No Symptoms Endocrine: No Symptoms Hematologic/Lymphatic: No Symptoms Immunological/Allergic: No Symptoms All Other Systems: Reviewed and Negative - Nursing Vital Signs Nursing Vital Signs: Initial Vital Signs Temperature 97.8 F 09/01/22 15:44 Pulse Rate 104 H 09/01/22 15:44 Respiratory Rate 17 09/01/22 15:44 Blood Pressure 133/88 09/01/22 15:44 O2 Sat by Pulse Oximetry 98 09/01/22 15:44 Pain Scale Pain Intensity 10 - Physical Exam General Appearance: no apparent distress, alert, anxiety, other (Intoxicated) Eyes, Ears, Nose, Throat Exam: normal ENT inspection, moist mucous membranes Neck Exam: normal inspection, non-tender, supple, full range of motion Respiratory Exam: normal breath sounds, lungs clear, airway intact, No chest tenderness, No respiratory distress Cardiovascular Exam: regular rate/rhythm, normal heart sounds, normal peripheral pulses Gastrointestinal/Abdominal Exam: soft, normal bowel sounds, No tenderness Extremities Exam: tenderness (Axially oriented 1 cm skin laceration with skin edge bleed. Patient is neurovascularly intact. Patient has no tendon injury) Neurological Exam: alert, tire changer II-XII nml as tested, anxious, depressed affect Appearance: impaired insight Behavior/Eye Contact/Speech: alert & cooperative, avoids eye contact Thoughts/Hallucinations: no apparent hallucination Skin Exam: laceration (Eleven centimeter skin laceration left forearm with skin edge bleed. No foreign body. Neurovascular intact without evidence of tendon injury) SpO2: 98 O2 Delivery: Room Air Procedures - Laceration/Wound Repair Left Volar Time of Procedure: 16:15 Wound Location: Left (Forearm) Wound Length (cm): 11 Wound's Depth, Shape: superficial, linear, into subcut Wound Explored: clean (Evaluation made in a bloodless field to the base and no foreign body noted) Irrigated: Yes Hibiclens Prep: Yes Volume Anesthetic (ccs): 0 (Patient refused) Wound Repaired With: Zain (12 zain placed in the longest laceration site and secondary superficial laceration measuring approximately 3 cm was approximated with 2 skin zain) - Course Nursing assessment & vital signs reviewed: Yes EKG Interpreted by Me: RATE (97), Sinus Rhythm, NORMAL AXIS, NORMAL INTERVALS, NORMAL QRS, NORMAL ST-T, Other (No acute ischemic changes on today's EKG.) Ordered Tests: Active Orders 24 hr Category Date Time Status Bedrest TOLERATED Activity 09/01/22 23:37 Active Code Status Order ROUTINE Care 09/01/22 23:37 Active EKG-ER Only STAT Care 09/01/22 15:50 Completed Elevate HOB TOLERATED Care 09/01/22 23:37 Active IV Insertion STAT Care 09/01/22 15:[address] in Observation ROUTINE Care 09/01/22 23:37 Active Telemetry PROTOCOL Care 09/01/22 23:37 Active Weight,Daily 0600 Care 09/01/22 23:37 Active Wound Care STAT Care 09/01/22 16:13 Completed ConsultGregory [Psychiatric Consult] ONCE Cons 09/01/22 23:37 Active Clear Liquid Diet 09/02/22 Breakfast Active ACETAMINOPHEN Stat Lab 09/01/22 16:00 Completed CBC W DIFF AM.LAB Lab 09/02/22 04:00 Ordered CBC W DIFF Stat Lab 09/01/22 16:00 Completed CMP AM.LAB Lab 09/02/22 04:00 Ordered CMP Stat Lab 09/01/22 16:00 Completed ETHYL ALCOHOL Stat Lab 09/01/22 16:00 Completed ETHYL ALCOHOL Stat Lab 09/02/22 05:00 Ordered POCT GLUCOSE Stat Lab 09/01/22 19:13 Completed SALICYLATE Stat Lab 09/01/22 16:00 Completed UA W/RFX CULTURE Stat Lab 09/01/22 18:08 Completed Urine Triage Profile Stat Lab 09/01/22 18:05 Completed Pulse Oximetry ROUTINE RT 09/01/22 23:37 Completed Medication Summary Generic Name Dose Route Start Last Admin Trade Name Freq PRN Reason Stop Dose Admin Acetaminophen 650 mg 09/01/22 23:37 Acetaminophen 325 Mg Tablet PO 10/01/22 23:36 Q4H PRN PRN PAIN, FEVER, HEADACHE Folic Acid 1 mg 09/02/22 10:00 Folic Acid 1 Mg Tablet PO 10/02/22 09:59 DAILY GABRIELA Sodium Chloride 1,000 mls @ 100 mls/hr 09/01/22 23:37 09/02/22 00:51 Sodium Chloride 0.9% 1000 Ml IV 10/01/22 23:36 100 mls/hr .Q10H GABRIELA Administration Lorazepam 1 mg 09/01/22 23:37 09/02/22 05:30 Lorazepam 2 Mg/1 Ml 2 Mg Vial IV 10/01/22 23:36 1 mg Q2H PRN PRN Administration ANXIETY/AGITATION Multivitamins Therapeutic 1 tab 09/02/22 10:00 Multivitamins,Therapeutic 1 Tab Tab PO 10/02/22 09:59 QAM GABRIELA Nicotine 21 mg 09/02/22 02:15 09/02/22 02:15 Nicotine 21 Mg/Patch Patch TOP 10/02/22 02:14 21 mg Q24H GABRIELA Administration Ondansetron HCl 4 mg 09/01/22 23:37 Ondansetron Hcl 4 Mg/2 Ml Vial IV 10/01/22 23:36 Q6H PRN PRN NAUSEA/VOMITING Pantoprazole Sodium 40 mg 09/01/22 23:37 09/02/22 01:08 Pantoprazole 40 Mg Vial IV 10/01/22 23:36 Not Given Q24H GABRIELA Thiamine HCl 100 mg 09/02/22 10:00 Thiamine Hcl 100 Mg Tablet PO 10/02/22 09:59 DAILY GABRIELA Discontinued Medications Generic Name Dose Route Start Last Admin Trade Name Thad PRN Reason Stop Dose Admin Sodium Chloride 1,000 mls @ 999 mls/hr 09/01/22 15:50 09/01/22 17:48 Sodium Chloride 0.9% 1000 Ml IV 09/01/22 16:50 Infused .Q1H1M STA Infusion Sodium Chloride Confirm 09/01/22 16:38 Sodium Chloride 0.9% 1000 Ml Administered 09/01/22 16:39 Dose 1,000 mls @ ud .ROUTE .STK-MED ONE Lidocaine HCl Confirm 09/01/22 15:57 Lidocaine Hcl 1% 20 Ml Mdv 20 Ml Ml Administered 09/01/22 15:58 Dose 10 ml .ROUTE .STK-MED ONE Lidocaine HCl 10 ml 09/01/22 16:02 09/01/22 16:03 Lidocaine Hcl 1% 20 Ml Mdv 20 Ml Ml IJ 09/01/22 16:03 10 ml STAT ONE Administration Lorazepam 0.5 mg 09/01/22 15:55 09/01/22 15:57 Lorazepam 2 Mg/1 Ml 2 Mg Vial IV 09/01/22 15:56 0.5 mg STAT ONE Administration Lorazepam Confirm 09/01/22 15:56 Lorazepam 2 Mg/1 Ml 2 Mg Vial Administered 09/01/22 15:57 Dose 2 mg .ROUTE .STK-MED ONE Lorazepam 1 mg 09/01/22 16:33 09/01/22 16:41 Lorazepam 2 Mg/1 Ml 2 Mg Vial IV 09/01/22 16:34 1 mg STAT ONE Administration Lorazepam Confirm 09/01/22 16:38 Lorazepam 2 Mg/1 Ml 2 Mg Vial Administered 09/01/22 16:39 Dose 2 mg .ROUTE .STK-MED ONE Lorazepam 1 mg 09/01/22 21:33 09/01/22 21:40 Lorazepam 2 Mg/1 Ml 2 Mg Vial IV 09/01/22 21:34 1 mg STAT ONE Administration Lorazepam Confirm 09/01/22 21:36 Lorazepam 2 Mg/1 Ml 2 Mg Vial Administered 09/01/22 21:37 Dose 2 mg .ROUTE .STK-MED ONE Lorazepam 1 mg 09/01/22 22:55 09/01/22 23:04 Lorazepam 2 Mg/1 Ml 2 Mg Vial IV 09/01/22 22:56 1 mg STAT ONE Administration Lorazepam Confirm 09/01/22 23:03 Lorazepam 2 Mg/1 Ml 2 Mg Vial Administered 09/01/22 23:04 Dose 2 mg .ROUTE .STK-MED ONE Ondansetron HCl 4 mg 09/01/22 15:50 09/01/22 16:40 Ondansetron Hcl 4 Mg/2 Ml Vial IV 09/01/22 15:51 4 mg STAT ONE Administration Ondansetron HCl Confirm 09/01/22 16:37 Ondansetron Hcl 4 Mg/2 Ml Vial Administered 09/01/22 16:38 Dose 4 mg .ROUTE .STK-MED ONE Pantoprazole Sodium 40 mg 09/01/22 15:51 09/01/22 16:41 Pantoprazole 40 Mg Vial IV 09/01/22 15:52 40 mg STAT ONE Administration Pantoprazole Sodium Confirm 09/01/22 16:38 Pantoprazole 40 Mg Vial Administered 09/01/22 16:39 Dose 40 mg IV .STK-MED ONE Lab/Rad Data: Laboratory Result Diagrams 09/01/22 16:00 09/01/22 16:00 Laboratory Results 09/01/22 09/01/22 09/01/22 Range/Units 19:13 18:34 18:08 WBC (4.0-10.5) x10^3/uL RBC (4.1-5.6) x10^6/uL Hgb (12.5-18.0) g/dL Hct (42-50) % MCV (78-100) fL MCH (26-32) pg MCHC (32-36) g/dL RDW (11.5-14.0) % Plt Count (150-450) x10^3/uL MPV (7.5-11.0) fL Gran % (36.0-66.0) % Immature Gran % (Auto) (0.00-0.4) % Nucleat RBC Rel Count (0.00-0.1) % Eos # (Auto) (0-0.5) x10^3/uL Immature Gran # (Auto) (0.00-0.03) x10^3u/L Absolute Lymphs (auto) (1.0-4.6) x10^3/uL Absolute Monos (auto) (0.0-1.3) x10^3/uL Absolute Nucleated RBC (0.00-0.01) x10^3u/L Lymphocytes % (24.0-44.0) % Monocytes % (0.0-12.0) % Eosinophils % (0.00-5.0) % Basophils % (0.0-0.4) % Absolute Granulocytes (1.4-6.9) x10^3/uL Basophils # (0-0.4) x10^3/uL Sodium (137-145) mmol/L Potassium (3.5-5.1) mmol/L Chloride (98-107) mmol/L Carbon Dioxide (22-30) mmol/L Anion Gap (5-15) MEQ/L BUN (9-20) mg/dL Creatinine (0.66-1.25) mg/dL Estimated GFR ML/MIN Glucose (74-106) mg/dL POC Glucometer 85 (74 to 106) mg/dL Calcium (8.4-10.2) mg/dL Total Bilirubin (0.2-1.3) mg/dL AST (17-59) U/L ALT (0-50) U/L Alkaline Phosphatase (38-126) U/L Serum Total Protein (6.3-8.2) g/dL Albumin (3.5-5.0) g/dL Urinalys Dipstick Clnc MAIN LAB Urine Color LT.YELLOW (YELLOW) Urine Appearance CLEAR (CLEAR) Urine pH 5.5 (5-6) Ur Specific [place] <=1.005 A (1.005-1.025) POC Urine Protein Conf NEGATIVE (Negative) Urine Ketones NEGATIVE (NEGATIVE) Urine Nitrite NEGATIVE (NEGATIVE) Urine Bilirubin NEGATIVE (NEGATIVE) Urine Urobilinogen 0.2 (0-1) mg/dL Urine Leukocytes NEGATIVE (NEGATIVE) Urine WBC (Auto) NONE (0-5) /HPF Urine RBC (Auto) NONE (0-2) /HPF U Epithel Cells (Auto) NONE (FEW) /HPF Urine Bacteria (Auto) NONE SEEN (NEGATIVE) /HPF Urine RBC NEGATIVE (0-5) Mumtaz/ul Ur Culture Indicated? NO Urine Glucose NEGATIVE (NEGATIVE) mg/dL Salicylates (2-20) mg/dL Urine Opiates Level (NEGATIVE) Ur Methadone (NEGATIVE) Acetaminophen (10-30) ug/ml Urine Barbiturates (NEGATIVE) Ur Phencyclidine (PCP) (NEGATIVE) Urine Amphetamine (NEGATIVE) U Benzodiazepine Level (NEGATIVE) Urine Cocaine (NEGATIVE) Urine Marijuana (THC) (NEGATIVE) Ethyl Alcohol (0-10) mg/dL Influenza Type A Ag NEGATIVE (NEGATIVE) Influenza Type B Ag NEGATIVE (NEGATIVE) RSV (PCR) NEGATIVE (Negative) SARS-CoV-2 (PCR) NEGATIVE (NEGATIVE) 09/01/22 09/01/22 09/01/22 Range/Units 18:05 16:00 16:00 WBC 9.0 (4.0-10.5) x10^3/uL RBC 4.86 (4.1-5.6) x10^6/uL Hgb 16.0 (12.5-18.0) g/dL Hct 47.3 (42-50) % MCV 97.3 (78-100) fL MCH 32.9 H (26-32) pg MCHC 33.8 (32-36) g/dL RDW 13.2 (11.5-14.0) % Plt Count 268 (150-450) x10^3/uL MPV 9.9 (7.5-11.0) fL Gran % 49.4 (36.0-66.0) % Immature Gran % (Auto) 0.4 (0.00-0.4) % Nucleat RBC Rel Count 0.0 (0.00-0.1) % Eos # (Auto) 0.32 (0-0.5) x10^3/uL Immature Gran # (Auto) 0.04 H (0.00-0.03) x10^3u/L Absolute Lymphs (auto) 3.35 (1.0-4.6) x10^3/uL Absolute Monos (auto) 0.80 (0.0-1.3) x10^3/uL Absolute Nucleated RBC 0.00 (0.00-0.01) x10^3u/L Lymphocytes % 37.1 (24.0-44.0) % Monocytes % 8.9 (0.0-12.0) % Eosinophils % 3.5 (0.00-5.0) % Basophils % 0.7 (0.0-0.4) % Absolute Granulocytes 4.45 (1.4-6.9) x10^3/uL Basophils # 0.06 (0-0.4) x10^3/uL Sodium 145 (137-145) mmol/L Potassium 4.4 (3.5-5.1) mmol/L Chloride 107 (98-107) mmol/L Carbon Dioxide 20 L (22-30) mmol/L Anion Gap 22.2 H (5-15) MEQ/L BUN 9 (9-20) mg/dL Creatinine 1.04 (0.66-1.25) mg/dL Estimated GFR > 60.0 ML/MIN Glucose 97 (74-106) mg/dL POC Glucometer (74 to 106) mg/dL Calcium 9.6 (8.4-10.2) mg/dL Total Bilirubin 0.30 (0.2-1.3) mg/dL AST 67 H (17-59) U/L ALT 71 H (0-50) U/L Alkaline Phosphatase 70 (38-126) U/L Serum Total Protein 9.3 H (6.3-8.2) g/dL Albumin 5.2 H (3.5-5.0) g/dL Urinalys Dipstick Clnc Urine Color (YELLOW) Urine Appearance (CLEAR) Urine pH (5-6) Ur Specific [place] (1.005-1.025) POC Urine Protein Conf (Negative) Urine Ketones (NEGATIVE) Urine Nitrite (NEGATIVE) Urine Bilirubin (NEGATIVE) Urine Urobilinogen (0-1) mg/dL Urine Leukocytes (NEGATIVE) Urine WBC (Auto) (0-5) /HPF Urine RBC (Auto) (0-2) /HPF U Epithel Cells (Auto) (FEW) /HPF Urine Bacteria (Auto) (NEGATIVE) /HPF Urine RBC (0-5) Mumtaz/ul Ur Culture Indicated? Urine Glucose (NEGATIVE) mg/dL Salicylates 1.8 L (2-20) mg/dL Urine Opiates Level NEGATIVE (NEGATIVE) Ur Methadone NEGATIVE (NEGATIVE) Acetaminophen < 10 L (10-30) ug/ml Urine Barbiturates NEGATIVE (NEGATIVE) Ur Phencyclidine (PCP) NEGATIVE (NEGATIVE) Urine Amphetamine NEGATIVE (NEGATIVE) U Benzodiazepine Level POSITIVE (NEGATIVE) Urine Cocaine NEGATIVE (NEGATIVE) Urine Marijuana (THC) NEGATIVE (NEGATIVE) Ethyl Alcohol 354 H (0-10) mg/dL Influenza Type A Ag (NEGATIVE) Influenza Type B Ag (NEGATIVE) RSV (PCR) (Negative) SARS-CoV-2 (PCR) (NEGATIVE) - Progress Progress: improved Progress Note: 09/01/22 20:06 Medical decision making: This patient is too intoxicated to be evaluated by psychiatry at this time. We will place him on a monitored bed and repeat labs in the morning. We will provide with intravenous fluids as well as intravenous Ativan. We will place him in observation. I spoke with Dr. Guillory and he agrees with this plan 09/01/22 20:06 Discussed with : Katie Counseled pt/family regarding: lab results, diagnosis - Departure Departure Disposition: Observation Clinical Impression: Alcohol abuse, Suicidal ideation, Alcohol intoxication Condition: Fair Critical Care Time: No
[2022-09-01 18:16] LABS: Appearance CLEAR (CLEAR); Bilirubin NEGATIVE (NEGATIVE); Glucose NEGATIVE (NEGATIVE); Ketones NEGATIVE (NEGATIVE); RBC NEGATIVE Ery/ul (0-5); Specific Gravity <=1.005 (1.005-1.025)
[2022-09-01 18:17] LABS: Dipstick done @ ? MAIN LAB; Nitrite NEGATIVE (NEGATIVE); Ph 5.5 (5-6); Protein,Urine Dip NEGATIVE (Negative); Urobilinogen 0.2 mg/dL (0-1)
[2022-09-01 18:19] LABS: Bacteria NONE SEEN /HPF (NEGATIVE); Urine Cultured Indicated? NO
[2022-09-01 18:26] LABS: Amphetamine,Urine NEGATIVE (NEGATIVE); Barbiturate,Urine NEGATIVE (NEGATIVE); Benzodiazepine,Urine POSITIVE (NEGATIVE); Cocaine,Urine NEGATIVE (NEGATIVE); Methadone,Urine NEGATIVE (NEGATIVE); Opiate,Urine NEGATIVE (NEGATIVE); PCP,Urine NEGATIVE (NEGATIVE); THC,Urine NEGATIVE (NEGATIVE)
[2022-09-01 19:14] LABS: INFLUENZA A NEGATIVE (NEGATIVE); INFLUENZA B NEGATIVE (NEGATIVE); RESPIRATORY SYNCTIAL VIRUS NEGATIVE (Negative); SARS-CoV-2 Xpert Express NEGATIVE (NEGATIVE)
[2022-09-01] MEDS ORDERED: PROTONIX 40 MG IV IV SCH (23:37)
[2022-09-01] MEDS ORDERED: TYLENOL 325 MG PO PRN (23:37)
[2022-09-01] MEDS ORDERED: Zofran 4 MG/2 ML VIAL IV PRN (23:37)
[2022-09-02] MEDS: Sodium Chloride 0.9% 1000 ML 1,000 ML IV SCH ×2 (00:51→11:18)
[2022-09-02] MEDS: Ativan 2 MG/1 ML VIAL IV PRN ×6 (01:06→12:51)
[2022-09-02] MEDS ORDERED: Nicoderm CQ 21 MG TOP SCH (02:15)
[2022-09-02 07:27] LABS: Absolute Neutrophil Ct (ANC) 2.96 x10^3/uL (1.4-6.9); Basophil (Absolute #) 0.05 x10^3/uL (0-0.4); Eosinophil % 3.7 % (0.00-5.0); Eosinophil (Absolute #) 0.22 x10^3/uL (0-0.5); Hematocrit 37.9 % (42-50); Hemoglobin 12.7 g/dL (12.5-18.0); Lymphocyte (Absolute #) 2.19 x10^3/uL (1.0-4.6); Lymphocytes % 36.4 % (24.0-44.0); Mean Cell Volume 96.9 fL (78-100); Mean Corpuscular Hemoglobin 32.5 pg (26-32); Mean Corpuscular Hgb Concent. 33.5 g/dL (32-36); Mean Platelet Volume 10.1 fL (7.5-11.0); Monocyte (Absolute #) 0.58 x10^3/uL (0.0-1.3); Monocytes % 9.6 % (0.0-12.0); Neutrophil % 49.2 % (36.0-66.0); Platelet Count 198 x10^3/uL (150-450); Red Blood Count 3.91 x10^6/uL (4.1-5.6); Red Cell Distribution Width 13.6 % (11.5-14.0)
[2022-09-02 07:56] VITALS: O2SAT 95
--- NOTE | 2022-09-02 08:43 | PCM.HP ---
History of Present Illness - Chief Complaint Chief Complaint: Suicidal ideation History of Present Illness: is a 32 year old male who presented to the ER with suicidal gesture, he cut himself on the left forearm prior to arrival, he has a longstanding history of alcoholism and previous suicide attempts. He cut his left forearm in the past with resultant tendon injury and has some residual deficits in his left hand from that incident. He is very somber this morning, just feels overwhelmed with life and everything he has going on, still has thoughts of suicide. - Review of Systems Constitutional: No Fever, No Chills Respiratory: No Cough, No Short Of Breath Cardiac: No Chest Pain, No Edema, No Syncope Abdominal/Gastrointestinal: No Abdominal Pain, No Nausea, No Vomiting, No Diarrhea Genitourinary Symptoms: No Dysuria Psychological: Alcohol Abuse, Suicidal Ideations, No Drug Abuse, No Hallucinations Medications & Allergies Home Medications: Home Medication List Unobtainable 09/02/22 [History Confirmed 09/02/22] Allergies/Adverse Reactions: Allergies Allergy/AdvReac Type Severity Reaction Status Date / Time No Known Drug Allergies Allergy Verified 09/01/22 16:10 - Past Medical History Past Medical History: No Neurological History: No Pertinent History ENT History: No Pertinent History Cardiac History: No Pertinent History Respiratory History: No Pertinent History Endocrine Medical History: No Pertinent History Musculoskelatal History: No Pertinent History GI Medical History: No Pertinent History History: No Pertinent History Pyscho-Social History: No Pertinent History Male Reproductive Disorders: No Pertinent History Comment: Anger management - Past Surgical History Past Surgical History: Yes Neuro Surgical History: No Pertinent History Cardiac History: No Pertinent History Respiratory Surgery: No Pertinent History GI Surgical History: No Pertinent History Genitourinary Surgical Hx: No Pertinent History Musculskeletal Surgical Hx: No Pertinent History Male Surgical History: No Pertinent History Other Surgical History: lt femur, lt humerus, wrist, nasal surgery, rt hand. - Social History Smoking Status: Current every day smoker How long have you smoked: 15 years Exposure to second hand smoke: Yes Alcohol: Daily Drug Use: marijuana - Physical Exam Vital Signs: Vital Signs - 24 hr Temp Pulse Resp BP BP Pulse Ox 09/02/22 07:55 97.5 F 98 H 14 104/75 95 09/02/22 07:20 96 H 09/02/22 06:16 98 09/02/22 05:30 94 H 17 102/56 09/02/22 04:00 97.7 F 98 H 16 90/61 09/02/22 03:16 105 H 15 110/65 09/02/22 01:06 11 L 18 09/01/22 23:30 98 F 12 122/75 95 09/01/22 23:00 112 H 16 113/76 98 09/01/22 20:05 100 H 24 99 09/01/22 19:22 96 H 14 99 09/01/22 15:44 97.8 F 104 H 17 133/88 98 General Appearance: no apparent distress Neurologic Exam: alert, oriented x 3 Respiratory Exam: normal breath sounds, lungs clear, No respiratory distress Cardiovascular Exam: regular rate/rhythm, normal heart sounds, normal peripheral pulses Gastrointestinal/Abdomen Exam: soft, normal bowel sounds, No tenderness, No mass Extremity Exam: normal inspection, normal range of motion, pelvis stable Skin Exam: normal color, warm, dry, No rash Wound Assessment: Skin/Wound Assessment Wound/Incision Assessment Start: 09/02/22 02:08 Text: Status: Active Freq: Q6H Protocol: Document 09/02/22 03:00 RI (Rec: 09/02/22 04:19 RI [id number]) Wound/Incision Assessment Left Anterior Distal Arm Wound Assessment Shift Assessment Wound Type Laceration Wound Stage Non Pressure Wound Drainage Description Sanguineous Drainage Odor None/Absent General Appearance Joyce Intact,Clean/Dry, Bleeding Surrounding Tissue Bright Red Primary Dressing Gauze Roll/Wrap Secondary Dressing Gauze Roll/Wrap Comment [address] SLIGHT GAP IN SKIN B/T JOYCE AT TOP OF LAC WITH SCANT BLEEDING NOTED DURING DRESSING CHANGE AT THIS TIME. Results - Labs Lab/Micro Results: Lab Results-Last 24 Hours 09/01/22 09/01/22 09/01/22 Range/Units 16:00 16:00 18:05 WBC 9.0 (4.0-10.5) x10^3/uL RBC 4.86 (4.1-5.6) x10^6/uL Hgb 16.0 (12.5-18.0) g/dL Hct 47.3 (42-50) % MCV 97.3 (78-100) fL MCH 32.9 H (26-32) pg MCHC 33.8 (32-36) g/dL RDW 13.2 (11.5-14.0) % Plt Count 268 (150-450) x10^3/uL MPV 9.9 (7.5-11.0) fL Gran % 49.4 (36.0-66.0) % Immature Gran % (Auto) 0.4 (0.00-0.4) % Nucleat RBC Rel Count 0.0 (0.00-0.1) % Eos # (Auto) 0.32 (0-0.5) x10^3/uL Immature Gran # (Auto) 0.04 H (0.00-0.03) x10^3u/L Absolute Lymphs (auto) 3.35 (1.0-4.6) x10^3/uL Absolute Monos (auto) 0.80 (0.0-1.3) x10^3/uL Absolute Nucleated RBC 0.00 (0.00-0.01) x10^3u/L Lymphocytes % 37.1 (24.0-44.0) % Monocytes % 8.9 (0.0-12.0) % Eosinophils % 3.5 (0.00-5.0) % Basophils % 0.7 (0.0-0.4) % Absolute Granulocytes 4.45 (1.4-6.9) x10^3/uL Basophils # 0.06 (0-0.4) x10^3/uL Sodium 145 (137-145) mmol/L Potassium 4.4 (3.5-5.1) mmol/L Chloride 107 (98-107) mmol/L Carbon Dioxide 20 L (22-30) mmol/L Anion Gap 22.2 H (5-15) MEQ/L BUN 9 (9-20) mg/dL Creatinine 1.04 (0.66-1.25) mg/dL Estimated GFR > 60.0 ML/MIN Glucose 97 (74-106) mg/dL POC Glucometer (74 to 106) mg/dL Calcium 9.6 (8.4-10.2) mg/dL Total Bilirubin 0.30 (0.2-1.3) mg/dL AST 67 H (17-59) U/L ALT 71 H (0-50) U/L Alkaline Phosphatase 70 (38-126) U/L Serum Total Protein 9.3 H (6.3-8.2) g/dL Albumin 5.2 H (3.5-5.0) g/dL Urinalys Dipstick Clnc Urine Color (YELLOW) Urine Appearance (CLEAR) Urine pH (5-6) Ur Specific [place] (1.005-1.025) POC Urine Protein Conf (Negative) Urine Ketones (NEGATIVE) Urine Nitrite (NEGATIVE) Urine Bilirubin (NEGATIVE) Urine Urobilinogen (0-1) mg/dL Urine Leukocytes (NEGATIVE) Urine WBC (Auto) (0-5) /HPF Urine RBC (Auto) (0-2) /HPF U Epithel Cells (Auto) (FEW) /HPF Urine Bacteria (Auto) (NEGATIVE) /HPF Urine RBC (0-5) Mumtaz/ul Ur Culture Indicated? Urine Glucose (NEGATIVE) mg/dL Salicylates 1.8 L (2-20) mg/dL Urine Opiates Level NEGATIVE (NEGATIVE) Ur Methadone NEGATIVE (NEGATIVE) Acetaminophen < 10 L (10-30) ug/ml Urine Barbiturates NEGATIVE (NEGATIVE) Ur Phencyclidine (PCP) NEGATIVE (NEGATIVE) Urine Amphetamine NEGATIVE (NEGATIVE) U Benzodiazepine Level POSITIVE (NEGATIVE) Urine Cocaine NEGATIVE (NEGATIVE) Urine Marijuana (THC) NEGATIVE (NEGATIVE) Ethyl Alcohol 354 H (0-10) mg/dL Influenza Type A Ag (NEGATIVE) Influenza Type B Ag (NEGATIVE) RSV (PCR) (Negative) SARS-CoV-2 (PCR) (NEGATIVE) 09/01/22 09/01/22 09/01/22 Range/Units 18:08 18:34 19:13 WBC (4.0-10.5) x10^3/uL RBC (4.1-5.6) x10^6/uL Hgb (12.5-18.0) g/dL Hct (42-50) % MCV (78-100) fL MCH (26-32) pg MCHC (32-36) g/dL RDW (11.5-14.0) % Plt Count (150-450) x10^3/uL MPV (7.5-11.0) fL Gran % (36.0-66.0) % Immature Gran % (Auto) (0.00-0.4) % Nucleat RBC Rel Count (0.00-0.1) % Eos # (Auto) (0-0.5) x10^3/uL Immature Gran # (Auto) (0.00-0.03) x10^3u/L Absolute Lymphs (auto) (1.0-4.6) x10^3/uL Absolute Monos (auto) (0.0-1.3) x10^3/uL Absolute Nucleated RBC (0.00-0.01) x10^3u/L Lymphocytes % (24.0-44.0) % Monocytes % (0.0-12.0) % Eosinophils % (0.00-5.0) % Basophils % (0.0-0.4) % Absolute Granulocytes (1.4-6.9) x10^3/uL Basophils # (0-0.4) x10^3/uL Sodium (137-145) mmol/L Potassium (3.5-5.1) mmol/L Chloride (98-107) mmol/L Carbon Dioxide (22-30) mmol/L Anion Gap (5-15) MEQ/L BUN (9-20) mg/dL Creatinine (0.66-1.25) mg/dL Estimated GFR ML/MIN Glucose (74-106) mg/dL POC Glucometer 85 (74 to 106) mg/dL Calcium (8.4-10.2) mg/dL Total Bilirubin (0.2-1.3) mg/dL AST (17-59) U/L ALT (0-50) U/L Alkaline Phosphatase (38-126) U/L Serum Total Protein (6.3-8.2) g/dL Albumin (3.5-5.0) g/dL Urinalys Dipstick Clnc MAIN LAB Urine Color LT.YELLOW (YELLOW) Urine Appearance CLEAR (CLEAR) Urine pH 5.5 (5-6) Ur Specific [place] <=1.005 A (1.005-1.025) POC Urine Protein Conf NEGATIVE (Negative) Urine Ketones NEGATIVE (NEGATIVE) Urine Nitrite NEGATIVE (NEGATIVE) Urine Bilirubin NEGATIVE (NEGATIVE) Urine Urobilinogen 0.2 (0-1) mg/dL Urine Leukocytes NEGATIVE (NEGATIVE) Urine WBC (Auto) NONE (0-5) /HPF Urine RBC (Auto) NONE (0-2) /HPF U Epithel Cells (Auto) NONE (FEW) /HPF Urine Bacteria (Auto) NONE SEEN (NEGATIVE) /HPF Urine RBC NEGATIVE (0-5) Mumtaz/ul Ur Culture Indicated? NO Urine Glucose NEGATIVE (NEGATIVE) mg/dL Salicylates (2-20) mg/dL Urine Opiates Level (NEGATIVE) Ur Methadone (NEGATIVE) Acetaminophen (10-30) ug/ml Urine Barbiturates (NEGATIVE) Ur Phencyclidine (PCP) (NEGATIVE) Urine Amphetamine (NEGATIVE) U Benzodiazepine Level (NEGATIVE) Urine Cocaine (NEGATIVE) Urine Marijuana (THC) (NEGATIVE) Ethyl Alcohol (0-10) mg/dL Influenza Type A Ag NEGATIVE (NEGATIVE) Influenza Type B Ag NEGATIVE (NEGATIVE) RSV (PCR) NEGATIVE (Negative) SARS-CoV-2 (PCR) NEGATIVE (NEGATIVE) 09/02/22 Range/Units 07:20 WBC 6.0 (4.0-10.5) x10^3/uL RBC 3.91 L (4.1-5.6) x10^6/uL Hgb 12.7 D (12.5-18.0) g/dL Hct 37.9 L (42-50) % MCV 96.9 (78-100) fL MCH 32.5 H (26-32) pg MCHC 33.5 (32-36) g/dL RDW 13.6 (11.5-14.0) % Plt Count 198 (150-450) x10^3/uL MPV 10.1 (7.5-11.0) fL Gran % 49.2 (36.0-66.0) % Immature Gran % (Auto) 0.3 (0.00-0.4) % Nucleat RBC Rel Count 0.0 (0.00-0.1) % Eos # (Auto) 0.22 (0-0.5) x10^3/uL Immature Gran # (Auto) 0.02 (0.00-0.03) x10^3u/L Absolute Lymphs (auto) 2.19 (1.0-4.6) x10^3/uL Absolute Monos (auto) 0.58 (0.0-1.3) x10^3/uL Absolute Nucleated RBC 0.00 (0.00-0.01) x10^3u/L Lymphocytes % 36.4 (24.0-44.0) % Monocytes % 9.6 (0.0-12.0) % Eosinophils % 3.7 (0.00-5.0) % Basophils % 0.8 (0.0-0.4) % Absolute Granulocytes 2.96 (1.4-6.9) x10^3/uL Basophils # 0.05 (0-0.4) x10^3/uL Sodium (137-145) mmol/L Potassium (3.5-5.1) mmol/L Chloride (98-107) mmol/L Carbon Dioxide (22-30) mmol/L Anion Gap (5-15) MEQ/L BUN (9-20) mg/dL Creatinine (0.66-1.25) mg/dL Estimated GFR ML/MIN Glucose (74-106) mg/dL POC Glucometer (74 to 106) mg/dL Calcium (8.4-10.2) mg/dL Total Bilirubin (0.2-1.3) mg/dL AST (17-59) U/L ALT (0-50) U/L Alkaline Phosphatase (38-126) U/L Serum Total Protein (6.3-8.2) g/dL Albumin (3.5-5.0) g/dL Urinalys Dipstick Clnc Urine Color (YELLOW) Urine Appearance (CLEAR) Urine pH (5-6) Ur Specific [place] (1.005-1.025) POC Urine Protein Conf (Negative) Urine Ketones (NEGATIVE) Urine Nitrite (NEGATIVE) Urine Bilirubin (NEGATIVE) Urine Urobilinogen (0-1) mg/dL Urine Leukocytes (NEGATIVE) Urine WBC (Auto) (0-5) /HPF Urine RBC (Auto) (0-2) /HPF U Epithel Cells (Auto) (FEW) /HPF Urine Bacteria (Auto) (NEGATIVE) /HPF Urine RBC (0-5) Mumtaz/ul Ur Culture Indicated? Urine Glucose (NEGATIVE) mg/dL Salicylates (2-20) mg/dL Urine Opiates Level (NEGATIVE) Ur Methadone (NEGATIVE) Acetaminophen (10-30) ug/ml Urine Barbiturates (NEGATIVE) Ur Phencyclidine (PCP) (NEGATIVE) Urine Amphetamine (NEGATIVE) U Benzodiazepine Level (NEGATIVE) Urine Cocaine (NEGATIVE) Urine Marijuana (THC) (NEGATIVE) Ethyl Alcohol (0-10) mg/dL Influenza Type A Ag (NEGATIVE) Influenza Type B Ag (NEGATIVE) RSV (PCR) (Negative) SARS-CoV-2 (PCR) (NEGATIVE) Assessment/Plan (1) Alcoholism Current Visit: Yes Status: Acute Assessment & Plan: detox protocol in place, last drink was just prior to arrival. patient is interested in treatment for alcohol abuse Code(s): F10.20 - ALCOHOL DEPENDENCE, UNCOMPLICATED (2) Suicidal behavior with attempted self-injury Current Visit: Yes Status: Acute Assessment & Plan: repeat etoh level pending, will get psych consult when below the legal limit and able to evaluate, he appears cooperative and able to be evaluated this morning Code(s): T14.91XA - SUICIDE ATTEMPT, INITIAL ENCOUNTER (3) Forearm laceration Current Visit: Yes Status: Acute Assessment & Plan: repaired in ER Code(s): S51.819A - LACERATION WITHOUT FOREIGN BODY OF UNSP FOREARM, INIT ENCNTR
[2022-09-02 09:05] LABS: ALBUMIN 3.9 g/dL (3.5-5.0); ALKALINE PHOSPHATASE 52 U/L (38-126); ANION GAP 11.5 MEQ/L (5-15); BLOOD UREA NITROGEN 12 mg/dL (9-20); CHLORIDE 106 mmol/L (98-107); Calcium 8.5 mg/dL (8.4-10.2); Carbon Dioxide 26 mmol/L (22-30); Creatinine 1 0.97 mg/dL (0.66-1.25); EST GLOMERULAR FILTRATION RATE > 60.0 ML/MIN; Glucose 94 mg/dL (74-106); Potassium 4.1 mmol/L (3.5-5.1); SGOT/AST 38 U/L (17-59); SGPT/ALT 53 U/L (0-50); SODIUM 140 mmol/L (137-145); Total Protein 6.7 g/dL (6.3-8.2)
[2022-09-02] MEDS ORDERED: VITAMIN B-1 100 MG PO SCH (10:00)
[2022-09-02] MEDS ORDERED: PROTONIX 40 MG IV IV SCH (10:00)
[2022-09-02] MEDS ORDERED: THERAGRAN MULTIVITAMIN PO SCH (10:00)
[2022-09-02] MEDS ORDERED: FOLATE 1 MG PO SCH (10:00)
[2022-09-02 11:50] VITALS: BP 114/69; PULSE 86
== END 2022-09-02 15:28 ==
LOC: ED 15:43 → INTOOBSV 23:31 → EEVIPCON 23:31 → ICU 23:31 → OBSVTOIN 23:31
PROVIDERS: ADMIT Family Medicine; ATTEND Family Medicine
DX: F10.20 Alcohol dependence, uncomplicated (principal); T14.91XA Suicide attempt, initial encounter; S51.819A Laceration without foreign body of unspecified forearm, initial encounter; Z72.0 Tobacco use; Z79.899 Other long term (current) drug therapy; Z20.828 Contact with and (suspected) exposure to other viral communicable diseases
CPT/HCPCS: 0241U; 36000; 36415; 80053; 80307; 81015; 82947; 85025; 93005; 93041; 96360; 96372; 96374; 96375; 96376; 99285; G0480; 93268; J2060; J2405; A9270-GY; G0378

== ENCOUNTER 2023-04-01 22:07 | Emergency (ER) | payer MEDICAID, OTHER ==
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
[2023-04-01] MEDS ORDERED: Zofran 4 MG/2 ML VIAL IV ONE (22:17)
[2023-04-01] MEDS ORDERED: ZOFRAN ODT 4 MG PO ONE (22:33)
[2023-04-01] MEDS ORDERED: ZOFRAN ODT 4 MG ONE (22:35)
[2023-04-01 22:38] LABS: Absolute Neutrophil Ct (ANC) 4.55 x10^3/uL (1.4-6.9); BASOPHIL % 0.6 % (0.0-0.4); Basophil (Absolute #) 0.04 x10^3/uL (0-0.4); Eosinophil % 5.7 % (0.00-5.0); Eosinophil (Absolute #) 0.41 x10^3/uL (0-0.5); Hematocrit 43.2 % (42-50); Hemoglobin 14.6 g/dL (12.5-18.0); IMMATURE GRAN # 0.03 x10^3u/L (0.00-0.03); IMMATURE GRAN % 0.4 % (0.00-0.4); Lymphocyte (Absolute #) 1.78 x10^3/uL (1.0-4.6); Lymphocytes % 24.8 % (24.0-44.0); Mean Cell Volume 93.5 fL (78-100); Mean Corpuscular Hemoglobin 31.6 pg (26-32); Mean Corpuscular Hgb Concent. 33.8 g/dL (32-36); Monocyte (Absolute #) 0.36 x10^3/uL (0.0-1.3); Neutrophil % 63.5 % (36.0-66.0); Platelet Count 229 x10^3/uL (150-450); Red Blood Count 4.62 x10^6/uL (4.1-5.6); Red Cell Distribution Width 12.5 % (11.5-14.0); White Blood Count 7.2 x10^3/uL (4.0-10.5)
[2023-04-01 22:52] LABS: ACETAMINOPHEN < 10 ug/ml (10-30); ALBUMIN 4.8 g/dL (3.5-5.0); ALKALINE PHOSPHATASE 69 U/L (38-126); BLOOD UREA NITROGEN 12 mg/dL (9-20); CHLORIDE 104 mmol/L (98-107); Calcium 9.2 mg/dL (8.4-10.2); Carbon Dioxide 28 mmol/L (22-30); Creatinine 1 1.29 mg/dL (0.66-1.25); EST GLOMERULAR FILTRATION RATE > 60.0 ML/MIN; Glucose 121 mg/dL (74-106); Potassium 4.9 mmol/L (3.5-5.1); SALICYLATE < 1.0 mg/dL (2-20); SGOT/AST 32 U/L (17-59); SGPT/ALT 21 U/L (0-50); SODIUM 147 mmol/L (137-145); Total Protein 8.4 g/dL (6.3-8.2)
[2023-04-01] MEDS ORDERED: Compazine 10 MG/2 ML IM ONE (23:21)
[2023-04-01] MEDS ORDERED: Compazine 10 MG/2 ML ONE (23:26)
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
[2023-04-02 01:55] VITALS: PULSE 73; O2SAT 98
[2023-04-02 02:17] VITALS: BP 143/54
== END 2023-04-02 02:25 | disposition home or self-care (01) ==
LOC: ED 22:07 → EEVIPCON 22:07 → ED 04-02 02:25
DX: F10.129 Alcohol abuse with intoxication, unspecified (principal); Y90.7 Blood alcohol level of 200-239 mg/100 ml; S01.511A Laceration without foreign body of lip, initial encounter; Y09 Assault by unspecified means; Y92.149 Unspecified place in prison as the place of occurrence of the external cause; Z79.899 Other long term (current) drug therapy; Z28.310 Unvaccinated for COVID-19; Z72.0 Tobacco use
CPT/HCPCS: 12011; 36415; 70450; 70486; 80053; 80143; 80179; 82077; 82947; 85025; 93005; 93041; 94760; 96372; 99284; Q0162